=== PATIENT | male | born 1930 | race Caucasian/White ===

== ENCOUNTER 2018-04-28 00:45 | Inpatient (IN) ==
[2018-04-28] MEDS ORDERED: Morphine Sulfate Inj 2 MG/ML Vial IV.PUSH ONE (01:33)
[2018-04-28] MEDS ORDERED: Sod Chloride 0.9% Inj 1,000 ML IV.CONT SCH (01:45)
[2018-04-28 02:11] LABS: Baso # (Auto) 0.1 th/mm3 (0.0-0.2); Baso % (Auto) 1.1 % (0.0-2.0); Eos # (Auto) 0.2 th/mm3 (0.0-0.4); Eos % (Auto) 3.1 % (0.0-4.0); Hemoglobin 9.2 gm/dL (13.0-17.0); Lymph # (Auto) 0.9 th/mm3 (1.0-4.8); Lymph % (Auto) 17.3 % (9.0-44.0); Mean Corpuscular HGB Conc 32.9 % (32.0-36.0); Mean Corpuscular Hemoglobin 32.3 pg (27.0-34.0); Mean Corpuscular Volume 98.3 fL (80.0-100.0); Mean Platelet Volume 8.4 fL (7.0-11.0); Mono # (Auto) 0.9 th/mm3 (0.0-0.9); Mono % (Auto) 16.3 % (0.0-8.0); Neut # (Auto) 3.3 th/mm3 (1.8-7.7); Neut % (Auto) 62.2 % (16.0-70.0); Platelet Count 104 th/mm3 (150-450); Red Blood Count 2.85 mil/mm3 (4.50-5.90); Red Cell Distribution Width 17.4 % (11.6-17.2); White Blood Count 5.3 th/mm3 (4.0-11.0)
[2018-04-28 02:22] LABS: Activated Partial Thrombo Time 38.7 sec (24.3-30.1); INR 3.8 Ratio; Prothrombin Time 37.9 sec (9.8-11.6)
--- NOTE | 2018-04-28 02:31 | ED ---
HPI General Chief complaint: Fall Stated complaint: fall Time Seen by Provider: 04/28/18 01:01 Source: patient and family Limitations: no limitations History of Present Illness HPI narrative: The patient is an 87 year old male who presents to the [facility] emergency department with a history of falling prior to arrival. The patient reports that he was bending over to put lotion on his leg when he lost his balance and hit the top of his head and then the right arm. The patient reports having a headache. The patient reports having right shoulder pain and right elbow pain. The patient denies having any chest pain, chest pressure, or shortness of breath. He denies having any vomiting since a head injury. He denies having any neck pain, numbness or tingling to his extremities, or weakness of his extremities. The patient reports that he is anticoagulated on Coumadin due to a history of atrial fibrillation. On review of systems otherwise, the patient denies having any known recent fevers, cough, congestion , abdominal pain, diarrhea, urinary symptoms, or other neurologic symptoms. Related Data Home Medications Medication Instructions Recorded Confirmed Multiple Vitamins 1 tab PO BID 04/09/18 04/28/18 ascorbic acid (vitamin C) [Vitamin 500 mg PO DAILY 04/09/18 04/28/18 C] fluticasone 2 spray INHALATION DAILY 04/09/18 04/28/18 iron 65 mg PO BID 04/09/18 04/28/18 metoprolol tartrate 25 mg PO BID 04/09/18 04/28/18 nitroglycerin [Nitrostat] 0.4 mg SUBLINGUAL Q5-15M PRN 04/09/18 04/28/18 ranitidine HCl 150 mg PO DAILY 04/09/18 04/28/18 torsemide 20 mg PO DAILY 04/09/18 04/28/18 warfarin 2.5 mg PO 4XW 04/09/18 04/28/18 warfarin 5 mg PO 3XW 04/09/18 04/28/18 zolpidem 10 mg PO HS 04/09/18 04/28/18 acetaminophen-codeine 1 tab PO DAILY 04/12/18 04/28/18 [Tylenol-Codeine #3] Allergies Allergy/AdvReac Type Severity Reaction Status Date / Time MRI PRECAUTION AdvReac Severe NON REVO Uncoded 04/09/18 12:46 PACEMAKER. 08/30/14 LRS Review of Systems ROS: all other systems reviewed are negative [facility] Medical History Medical History A-fib (Acute) Colon cancer (Acute) Hypertension (Acute) Prostate cancer (Acute) Surgical History Surgical History H/O right inguinal hernia repair (Acute) History of cholecystectomy (Acute) Hx of CABG (Acute) Family History Family History Other Family history non-contributory Social History Social History Substance History: No History of Abuse Second Hand Smoke Exposure: No Smoking Status: Former smoker Tobacco Type: Cigarettes How Often Do You Have a Drink Containing Alcohol: Never Recent Travel in [facility] within the Last 8 Weeks: No Recent Out of Country Travel within the Last 8 Weeks: No Immunization History Tetanus Immunization: Unsure Exam Narrative Exam Narrative: General: The patient is a well-developed well-nourished male, uncomfortable appearing, reportedly related to right shoulder pain. Head and Neck exam: Head is normocephalic atraumatic. No facial bone tenderness or increased facial bone mobility noted on palpation. Eyes: EOMI, pupils are equal round and reactive to light. Nose: Midline septum with pink mucous membranes Mouth: Dentition unremarkable. Moist mucus membranes. Posterior oropharynx is not erythematous. No tonsillar hypertrophy. Uvula midline. Airway patent. Neck: The patient denies having any spinous process tenderness to palpation. No step-off or crepitus, no erythema or ecchymosis. No cervical paraspinal muscle tenderness on palpation. The patient has no pain with active range of motion of his neck in all directions. No tracheal deviation. The trachea appears midline. Cardiovascular: Regular rate and rhythm without murmurs, gallops, or rubs. Lungs: Clear to auscultation bilaterally. No wheezes, rhonchi, or rales. No chest wall tenderness to palpation. No erythema or ecchymosis noted. No crepitus , step off, or flail segment noted. Abdomen: Soft, with reported tenderness on palpation along bilateral upper quadrants of the abdomen. The patient does appear to have an area of ecchymosis developing along the left side of the lower pelvis. No guarding, rebound, or rigidity. No erythema. Extremities: No instability or pain noted on pelvic rock. No clubbing, cyanosis , or edema. 2+ pulses in all 4 extremities. No extremity tenderness or deformity noted on palpation or passive/ active range of motion, except in the area of interest, the right shoulder, the patient has swelling and a small area of ecchymosis developing. The patient has decreased range of motion. No loss of fullness in the glenoid fossa. The patient has full range of motion with extension and flexion at the elbow, extension and flexion at the wrist and hand. The patient has intact sensation over all fingertips, less than 3-second capillary refill. Back: No spinous process tenderness to palpation. No stepoff or crepitus noted. No costovertebral angle tenderness to palpation. No erythema or ecchymosis. Neurologic Exam: Cranial nerves 2-12 were intact on exam. Strength is 5/5 in all 4 extremities. No sensory deficits noted. Skin Exam: No rash noted. Intact skin that is warm and dry. Course Reevaluation(s) Reevaluation #1: The patient had a recurrence of pain and was given 4 mg of morphine IV. The patient had a right shoulder x-ray done that revealed a proximal humerus fracture. The patient was placed in a sling and swath. Reevaluation #2: The patient again had recurrence of pain and was treated with IV morphine. Consultations Consultation #1: The patient's case including history, pertinent physical examination findings, and laboratory studies were discussed with Dr. Zamora. It was agreed that the patient would be admitted to the trauma service. Initial Documented Vital Signs Temperature 98.5 F 04/28/18 00:59 Pulse Rate 72 04/28/18 00:59 Respiratory Rate 16 04/28/18 00:59 Blood Pressure 118/67 10 00:59 Pulse Oximetry 97 04/28/18 00:59 Last Documented Vital Signs Temperature 98.0 F 04/28/18 08:00 Pulse Rate 70 04/28/18 08:00 Respiratory Rate 14 04/28/18 08:00 Blood Pressure 94/44 L 04/28/18 08:00 Pulse Oximetry 92 L 04/28/18 08:00 Critical Care Time Critical Care Time: Yes Total Critical Care Time: 37 Attestation: Aggregate critical care time was 37 minutes. Time to perform other separately billable procedures was not included in the critical care time. My time did not include minutes spent treating any other patients simultaneously or on activities that did not directly contribute to the patient's treatment. The services I provided to this patient were to treat and/or prevent clinically significant deterioration that could result in: Respiratory failure, versus cardiovascular collapse from hemorrhagic shock, versus fluid overload from resuscitation. I provided critical care services requiring my management, as noted below: Chart data review, documentation time, medication orders and management, vital sign assessments/reviewing monitor data, ordering and reviewing lab tests, ordering and interpreting/reviewing x-rays and diagnostic studies, care of the patient and discussion of the patient with the admitting physicians. Medical Decision Making MDM Narrative Medical decision making narrative: During the course of the patient's emergency department visit, the patient's history, examination, and differential diagnosis were reviewed with the patient. The patient was placed on a stripping and booking machine operator with oximetry and frequent blood pressure monitoring. The patient had IV access obtained and blood work sent for analysis. A diagnostic evaluation was started regarding the patient's fall. The patient was initially provided normal saline IV fluids, morphine for pain, Zofran for nausea. The patient's diagnostic studies are remarkable for a normal white count of 5.3 , hemoglobin 9.2 with no prior hemoglobin for comparison of record in our electronic medical record, platelets are 104, monocytes 16.3.PT is 27.37.9, PTT 38.7, INR 3.8. The patient has no prior hemoglobin on CBC per record, however the patient did have an ABG on April 23 which revealed a hemoglobin at that time of 9.4, therefore the patient's level of anemia appears to be stable. Chemistry is remarkable for a BUN of 39, creatinine 2.93, GFR of 20, therefore CT scans were changed to without contrast to avoid further kidney injury, calcium 8.4, magnesium 2.7, total bilirubin 1.1, lipase within normal limits, BNP was 1290, supplemental IV fluids were therefore discontinued. A chest x- ray showed no acute abnormality. An elbow x-ray showed no acute abnormality. Shoulder x-ray revealed an oblique displaced fracture of the proximal right humerus through the surgical neck. CT scan of the brain showed no acute abnormality, CT scan of the C-spine showed no acute cervical spine abnormality, anterolisthesis of C7 on T1 which may be related to facet arthrosis, right pleural effusion, 12 mm right thyroid nodule. A chest CT revealed a mildly comminuted and displaced proximal right humerus fracture through the surgical neck, suspected nondisplaced right lateral third rib fracture, no pneumothorax is present, moderate sized simple appearing right pleural effusion and trace left pleural effusion which could be related to fluid overload, small volume of free fluid present within the upper abdomen, enlarged right heart and dilated IVC suggesting elevated right heart pressures. Severe coronary artery calcifications. CT scan of the abdomen and pelvis showed no acute findings other than a small volume of nonspecific free fluid in the perihepatic and perisplenic location The patient's case was discussed with the trauma surgeon on-call, Dr. Zamora who did agree to admit the patient to the trauma service for continued close observation due to his elevated INR, fall right rib fracture, right proximal humerus fracture for pain control. The patient's results were discussed with the patient, including the plan of care. I explained that further testing and/ or monitoring is indicated based on the patient's history, examination, and/ or laboratory findings. Therefore, I recommended admission for additional evaluation. The patient expressed understanding and was agreeable with this plan. The patient was admitted to the hospital in guarded condition and sent to a bed under the care of the trauma service. Medical Screen Exam Complete: Yes Emergency Medical Condition: Yes Differential Diagnosis Differential Diagnosis: Intracranial trauma, versus cervical spine trauma, versus intra-abdominal trauma, versus intrathoracic trauma, versus right shoulder fracture, versus right shoulder dislocation, versus right elbow fracture, versus right elbow dislocation. Medical Records Medical records reviewed: Yes I reviewed the patient's medical records. Lab Data Lab results reviewed: Yes I reviewed the patient's lab results. Result diagrams: 04/28/18 01:31 04/28/18 01:31 Lab Results 04/28/18 04/28/18 04/28/18 Range/Units 01:31 01:31 01:31 WBC 5.3 (4.0-11.0) th/mm3 RBC 2.85 L (4.50-5.90) mil/mm3 Hgb 9.2 L (13.0-17.0) gm/dL Hct 28.0 L (39.0-51.0) % MCV 98.3 (80.0-100.0) fL MCH 32.3 (27.0-34.0) pg MCHC 32.9 (32.0-36.0) % RDW 17.4 H (11.6-17.2) % Plt Count 104 L (150-450) th/mm3 MPV 8.4 (7.0-11.0) fL Neut % (Auto) 62.2 (16.0-70.0) % Lymph % (Auto) 17.3 (9.0-44.0) % Woodruff % (Auto) 16.3 H (0.0-8.0) % Eos % (Auto) 3.1 (0.0-4.0) % Baso % (Auto) 1.1 (0.0-2.0) % Neut # (Auto) 3.3 (1.8-7.7) th/mm3 Lymph # (Auto) 0.9 L (1.0-4.8) th/mm3 Woodruff # (Auto) 0.9 (0.0-0.9) th/mm3 Eos # (Auto) 0.2 (0.0-0.4) th/mm3 Baso # (Auto) 0.1 (0.0-0.2) th/mm3 WBC Differential . Differential Comment Auto diff final PT (9.8-11.6) sec INR Ratio APTT (24.3-30.1) sec Sodium 140 (136-145) meq/L Potassium 4.0 (3.5-5.1) meq/L Chloride 102 (98-107) meq/L Carbon Dioxide 25.2 (21.0-32.0) meq/L Anion Gap 13 (5-15) meq/L BUN 39 H (7-18) mg/dL Creatinine 2.93 H (0.60-1.30) mg/dL Estimated GFR 20 L (>89) mL/min Random Glucose 112 H (74-106) mg/dL Calcium 8.4 L (8.5-10.1) mg/dL Magnesium 2.7 H (1.5-2.5) mg/dL Total Bilirubin 1.1 H (0.2-1.0) mg/dL AST 33 (15-37) U/L ALT 17 (12-78) U/L Alkaline Phosphatase 93 (45-117) U/L Total Creatine Kinase 68 (39-308) U/L Troponin I 0.02 (0.02-0.05) ng/mL B-Natriuretic Peptide 1290 H (0-100) pg/mL Total Protein 6.7 (6.4-8.2) g/dL Albumin 3.6 (3.4-5.0) g/dL Lipase 151 (73-393) U/L Urine Color (Yellw/Straw) Urine Clarity (Clear) Urine pH (5.0-8.5) Ur Specific [place] (1.002-1.035) Urine Protein (Neg-Trace) mg/dL Urine Glucose (UA) (Negative) mg/dL Urine Ketones (Negative) mg/dL Urine Occult Blood (Negative) Urine Nitrate (Negative) Urine Bilirubin (Negative) Urine Urobilinogen (Less than 2) mg/dL Ur Leukocyte Esterase (Negative) Urine RBC (0-3) /hpf Urine WBC (0-5) /hpf Hyaline Casts (0-3) /lpf Urine Mucus (Occasional) /lpf Micro UA Comment Ur Microscopic Review Urine Culture Comments 04/28/18 04/28/18 Range/Units 01:31 04:10 WBC (4.0-11.0) th/mm3 RBC (4.50-5.90) mil/mm3 Hgb (13.0-17.0) gm/dL Hct (39.0-51.0) % MCV (80.0-100.0) fL MCH (27.0-34.0) pg MCHC (32.0-36.0) % RDW (11.6-17.2) % Plt Count (150-450) th/mm3 MPV (7.0-11.0) fL Neut % (Auto) (16.0-70.0) % Lymph % (Auto) (9.0-44.0) % Woodruff % (Auto) (0.0-8.0) % Eos % (Auto) (0.0-4.0) % Baso % (Auto) (0.0-2.0) % Neut # (Auto) (1.8-7.7) th/mm3 Lymph # (Auto) (1.0-4.8) th/mm3 Woodruff # (Auto) (0.0-0.9) th/mm3 Eos # (Auto) (0.0-0.4) th/mm3 Baso # (Auto) (0.0-0.2) th/mm3 WBC Differential Differential Comment PT 37.9 H D (9.8-11.6) sec INR 3.8 Ratio APTT 38.7 H (24.3-30.1) sec Sodium (136-145) meq/L Potassium (3.5-5.1) meq/L Chloride (98-107) meq/L Carbon Dioxide (21.0-32.0) meq/L Anion Gap (5-15) meq/L BUN (7-18) mg/dL Creatinine (0.60-1.30) mg/dL Estimated GFR (>89) mL/min Random Glucose (74-106) mg/dL Calcium (8.5-10.1) mg/dL Magnesium (1.5-2.5) mg/dL Total Bilirubin (0.2-1.0) mg/dL AST (15-37) U/L ALT (12-78) U/L Alkaline Phosphatase (45-117) U/L Total Creatine Kinase (39-308) U/L Troponin I (0.02-0.05) ng/mL B-Natriuretic Peptide (0-100) pg/mL Total Protein (6.4-8.2) g/dL Albumin (3.4-5.0) g/dL Lipase (73-393) U/L Urine Color Yellow (Yellw/Straw) Urine Clarity Hazy H (Clear) Urine pH 5.0 (5.0-8.5) Ur Specific [place] 1.010 (1.002-1.035) Urine Protein Negative (Neg-Trace) mg/dL Urine Glucose (UA) Negative (Negative) mg/dL Urine Ketones Negative (Negative) mg/dL Urine Occult Blood Negative (Negative) Urine Nitrate Negative (Negative) Urine Bilirubin Negative (Negative) Urine Urobilinogen Less than 2 (Less than 2) mg/dL Ur Leukocyte Esterase Negative (Negative) Urine RBC Less than 1 (0-3) /hpf Urine WBC 1 (0-5) /hpf Hyaline Casts 25 (0-3) /lpf Urine Mucus Few H (Occasional) /lpf Micro UA Comment Culture not ind Ur Microscopic Review Not Reportable Urine Culture Comments Culture not ind Imaging Data Radiologist's impression: Abdomen/Pelvis CT 04/28/18 01:24 CONCLUSION: 1. No acute finding is identified within the abdomen or pelvis on this noncontrast examination. 2. There is a small volume of nonspecific free fluid in the perihepatic and perisplenic location. 3. Severe atherosclerotic disease. Cervical Spine CT 04/28/18 01:24 CONCLUSION: 1. No acute cervical spine abnormality is identified. There is anterolisthesis of C7 on T1 which may be related to the facet arthrosis. 2. Right pleural effusion. 3. 12 mm right thyroid nodule. Head CT 04/28/18 01:24 CONCLUSION: No acute abnormality is identified. . Chest X-Ray 04/28/18 01:26 CONCLUSION: 1. Small right pleural effusion with atelectasis at the right lung base. The pleural effusion has slightly increased from the prior examination. 2. Right proximal humerus fracture. Elbow X-Ray 04/28/18 01:28 CONCLUSION: No fracture is identified. Shoulder X-Ray 04/28/18 01:28 CONCLUSION: There is an oblique displaced fracture of the proximal right humerus through the surgical neck. Chest CT 04/28/18 03:04 CONCLUSION: 1. There is a mildly comminuted and displaced proximal right humerus fracture through the surgical neck region. 2. Suspected nondisplaced right lateral third rib fracture. No pneumothorax is present. 3. Moderate size simple appearing right pleural effusion and trace left pleural fluid. 4. Small volume of free fluid is present within the upper abdomen. 5. Enlarged right heart and dilated IVC suggesting elevated right heart pressures. There is severe coronary artery calcification. Discharge Plan Discharge Disposition Patient Disposition: 30 Still Patient Discharge Details Diagnosis: Fall, Right rib fracture, Elevated INR, Fracture of proximal end of humerus Physicians Team ED Provider: Misti Yarbrough Primary Care Provider: Braden Johnson Attending Provider: Dario Zamora Other Providers: Thomas Ly ; Odalis Rosenberg ; Thania Caruso ; Donald Bob ; Singh Wu ; Stevie Jones ; Dario Zamora ; Hay Philip ; Lei Antony ; [employer] ; Danny Escudero ; Pat Russell Discharge Interventions Interventions: ED Discharge Assessment Last Done: 04/28/18 05:55 Status ED Status: Left Department Discharge Information Discharge Date/Time: 04/28/18 05:56
[2018-04-28 02:33] LABS: Alanine Aminotransferase 17 U/L (12-78); Albumin 3.6 g/dL (3.4-5.0); Anion Gap 13 meq/L (5-15); Aspartate Aminotransferase 33 U/L (15-37); Blood Urea Nitrogen 39 mg/dL (7-18); Calcium 8.4 mg/dL (8.5-10.1); Carbon Dioxide 25.2 meq/L (21.0-32.0); Chloride 102 meq/L (98-107); Glomerular Filtration Rate 20 mL/min (>89); Glucose,Random 112 mg/dL (74-106); Lipase 151 U/L (73-393); Magnesium 2.7 mg/dL (1.5-2.5); Sodium 140 meq/L (136-145)
[2018-04-28 02:38] LABS: Alkaline Phosphatase 93 U/L (45-117); Total Protein 6.7 g/dL (6.4-8.2); Troponin I 0.02 ng/mL (0.02-0.05)
[2018-04-28 02:42] LABS: Creatine Kinase 68 U/L (39-308)
--- NOTE | 2018-04-28 02:52 | XR ---
EXAM DATE: 04/28/2018 1:28 AM EDT AGE/SEX: 87 years / Male INDICATIONS: Right shoulder pain after falling today. CLINICAL DATA: This is the patient's initial encounter. Patient reports that signs and symptoms have been present for 1 day and indicates a pain score of 10/10. MEDICAL/SURGICAL HISTORY: Hypertension. CABG. Pacemaker. COMPARISON: No prior exams available for comparison. FINDINGS: 3 views of the right shoulder demonstrate an oblique displaced fracture through the proximal surgical neck of the humerus. Distal fragment is displaced by approximately 7 mm. There is no glenohumeral martin int dislocation. The acromioclavicular joint appears intact with osteoarthritis change. No acute soft tissue abnormality is identified. Visualized right chest demonstrates no acute abnormality. Median s ternotomy wires are present and cardiac pacing wires are seen. CONCLUSION: There is an oblique displaced fracture of the proximal right humerus through the surgical neck. Electronically signed by: Lon Morrison MD 04/28/2018 2:51 AM EDT
--- NOTE | 2018-04-28 02:54 | XR ---
EXAM DATE: 04/28/2018 1:26 AM EDT AGE/SEX: 87 years / Male INDICATIONS: Syncope. CLINICAL DATA: This is the patient's initial encounter. Patient reports that signs and symptoms have been present for 1 day and indicates a pain score of 0/10. MEDICAL/SURGICAL HISTORY: Hypertension. CABG. Pacemaker. COMPARISON: POI, XR CHEST PA AND LAT, 12/13/2017. . FINDINGS: 2 frontal views of the chest demonstrate stable enlargement of the cardiac silhouette in this patient post median sternotomy and CABG. Left chest wall cardiac pacing device is present. There is a small right pleural-based opacity with a linear opacity at the right lung base. No pneumothorax is identifi ed. No rib fracture is identified. There is a fracture of the proximal right humerus. CONCLUSION: 1. Small right pleural effusion with atelectasis at the right lung base. The pleural effusion has sl ightly increased from the prior examination. 2. Right proximal humerus fracture. Electronically signed by: Lon Morrison MD 04/28/2018 2:53 AM EDT
--- NOTE | 2018-04-28 02:57 | XR ---
EXAM DATE: 04/28/2018 1:28 AM EDT AGE/SEX: 87 years / Male INDICATIONS: Right elbow pain after falling today. CLINICAL DATA: This is the patient's initial encounter. Patient reports that signs and symptoms have been present for 1 day and indicates a pain score of 10/10. MEDICAL/SURGICAL HISTORY: Hypertension. CABG. Pacemaker. COMPARISON: No prior exams available for comparison. FINDINGS: 9 views of the right elbow demonstrate no fracture or dislocation. No definite joint effusion is iden tified. No soft tissue abnormality or radiopaque foreign body is identified. There is arterial vascul ar calcification. CONCLUSION: No fracture is identified. Electronically signed by: Lon Morrison MD 04/28/2018 2:56 AM EDT
[2018-04-28] MEDS ORDERED: Morphine Inj 4 MG/ML Vial IV.PUSH ONE ×2 (03:08→03:54)
--- NOTE | 2018-04-28 03:14 | CT ---
EXAM DATE: 04/28/2018 1:51 AM EDT AGE/SEX: 87 years / Male INDICATIONS: Trauma. Fall. CLINICAL DATA: This is the patient's initial encounter. Patient reports that signs and symptoms have been present for 1 day and indicates a pain score of 5/10. MEDICAL/SURGICAL HISTORY: Cardiovascular disease. Hypertension. Carcinoma, prostatic. Colon canc er CABG. CABG. RADIATION DOSE: 56.35 CTDI (mGy) COMPARISON: No prior exams available for comparison. TECHNIQUE: CT of the head without contrast. Using automated exposure control and adjustment of the mA and/or kV according to patient size, radiation dose was kept as low as reasonably achievable to ob tain optimal diagnostic quality images. DICOM format image data is available electronically for revi ew and comparison. FINDINGS: Cerebrum: There is mild generalized atrophy and ventricles are normal given the degree of atrophy. M ild periventricular white matter change is present. No midline shift, mass lesion, hemorrhage or acu te infarction. No extraaxial fluid collections are seen. Posterior Fossa: The cerebellum and brainstem demonstrate no acute abnormality. The 4th ventricle is midline. The cerebellopontine angle is within normal limits. Extracranial: The visualized sinuses are clear. Skull: The calvaria is intact. No skull fracture. CONCLUSION: No acute abnormality is identified. . Electronically signed by: Lon Morrison MD 04/28/2018 3:13 AM EDT
--- NOTE | 2018-04-28 03:26 | CT ---
EXAM DATE: 04/28/2018 3:06 AM EDT AGE/SEX: 87 years / Male INDICATIONS: Trauma. Fall. CLINICAL DATA: This is the patient's initial encounter. Patient reports that signs and symptoms have been present for 1 day and indicates a pain score of 5/10. MEDICAL/SURGICAL HISTORY: Cardiovascular disease. Hypertension. Carcinoma, prostatic. Colon canc er CABG. Pacemaker. RADIATION DOSE: 6.69 CTDI (mGy) ; Combined studies COMPARISON: No prior exams available for comparison. TECHNIQUE: Multiple contiguous axial images were obtained through the chest without contrast. Image s were obtained in suspended respiration using multiple row detector helical technique. Using automa angelo exposure control and adjustment of the mA and/or kV according to patient size, radiation dose was kept as low as reasonably achievable to obtain optimal diagnostic quality images. DICOM format imag e data is available electronically for review and comparison. FINDINGS: Lungs: No consolidation or pneumothorax. There is compressive atelectasis in the right lower lobe a djacent to the pleural effusion. Mild left lower lobe atelectasis is also present. Mediastinum: No acute abnormality is seen on this noncontrast examination but there is severe nguyen ry artery calcification and there is atherosclerotic disease of the aorta. Left chest wall cardiac pa cing device is present with lead tips in the right heart. The right heart is enlarged and IVC is dila angelo. No lymphadenopathy is identified. Pleurae: There is a moderate size right pleural effusion that appears simple. Trace left pleural flu id is present. Axillae: No lymphadenopathy. Musculoskeletal: There are degenerative changes throughout the thoracic spine. Median sternotomy wir es are present. The right proximal humerus fracture is identified consistent with a mildly comminuted displaced fracture at the proximal surgical neck. There is a questionable nondisplaced right lateral third rib fracture. Other: There is trace perihepatic and perisplenic free fluid. Calcifications are present within the right thyroid gland. CONCLUSION: 1. There is a mildly comminuted and displaced proximal right humerus fracture through the surgical n jeremiah region. 2. Suspected nondisplaced right lateral third rib fracture. No pneumothorax is present. 3. Moderate size simple appearing right pleural effusion and trace left pleural fluid. 4. Small volume of free fluid is present within the upper abdomen. 5. Enlarged right heart and dilated IVC suggesting elevated right heart pressures. There is severe c oronary artery calcification. Electronically signed by: Lon Morrison MD 04/28/2018 3:25 AM EDT
--- NOTE | 2018-04-28 03:32 | CT ---
EXAM DATE: 04/28/2018 1:24 AM EDT AGE/SEX: 87 years / Male INDICATIONS: Trauma. Fall. CLINICAL DATA: This is the patient's initial encounter. Patient reports that signs and symptoms have been present for 1 day and indicates a pain score of 5/10. MEDICAL/SURGICAL HISTORY: Cardiovascular disease. Hypertension. Carcinoma, prostatic. Colon cancer CABG. Pacemaker. RADIATION DOSE: 6.69 CTDI (mGy) ; Combined studies COMPARISON: [facility] [place] W/O CONTRAST, 09/22/2014. . TECHNIQUE: Multiple contiguous axial images were obtained through the abdomen. Images were obtained using multiple row detector helical technique. Using automated exposure control and adjustment of the mA and/or kV according to patient size, radiation dose was kept as low as reasonably achievable to o btain optimal diagnostic quality images. DICOM format image data is available electronically for rev iew and comparison. FINDINGS: Lower chest: Please refer to chest CT report for description of the supradiaphragmatic findings. Hepatobiliary: No focal liver lesion is seen on this noncontrast examination. The intrahepatic IVC is dilated. Gallbladder is not visualized. No bile duct dilatation is present. Kidneys: No hydronephrosis, stone, or mass. Adrenal Glands: Within normal limits. Spleen: No abnormality is appreciated on this noncontrast examination. There is perihepatic free flui d. Pancreas: No acute abnormality is identified on this noncontrast examination. Vascular: The aorta is nonaneurysmal. There is severe atherosclerotic disease. Some type of the varix is present within the right pelvis and is stable. Bowel/Mesentery: Stomach and small bowel demonstrate no acute abnormality. There has been prior right hemicolectomy. Area of anastomosis demonstrates no acute abnormality. There is a small volume of per ihepatic and perisplenic free fluid. Abdominal Wall: No hernia is visualized. Retroperitoneum: No lymphadenopathy. Bladder: No wall thickening or mass. Reproductive: There are fiducial markers in the prostate gland related to prior radiation therapy. Inguinal: No lymphadenopathy or hernia. Musculoskeletal: No acute osseous abnormality is identified. There are degenerative changes of the sherine mbar spine but no fracture is identified. CONCLUSION: 1. No acute finding is identified within the abdomen or pelvis on this noncontrast examination. 2. There is a small volume of nonspecific free fluid in the perihepatic and perisplenic location. 3. Severe atherosclerotic disease. Electronically signed by: Lon Morrison MD 04/28/2018 3:31 AM EDT
--- NOTE | 2018-04-28 03:43 | CT ---
EXAM DATE: 04/28/2018 1:51 AM EDT AGE/SEX: 87 years / Male INDICATIONS: Trauma. Fall. CLINICAL DATA: This is the patient's initial encounter. Patient reports that signs and symptoms have been present for 1 day and indicates a pain score of 5/10. MEDICAL/SURGICAL HISTORY: Cardiovascular disease. Hypertension. Carcinoma, prostatic. Colon cancer CABG. Pacemaker. RADIATION DOSE: 29.54 CTDI (mGy) COMPARISON: No prior exams available for comparison. TECHNIQUE: Contiguous axial images were obtained using helical multirow detector technique. The vol umetric data was post-processed with multiplanar reconstruction in oblique axial, sagittal, and coron al planes. Using automated exposure control and adjustment of the mA and/or kV according to patient s ize, radiation dose was kept as low as reasonably achievable to obtain optimal diagnostic quality elisa ges. DICOM format image data is available electronically for review and comparison. FINDINGS: There is 4 mm of anterolisthesis of C7 on T1. Mild facet arthrosis is present bilaterally at this lev el. There is minimal anterolisthesis of C3 on C4 also with bilateral facet arthrosis. No fracture or dislocation is identified. There is degenerative disc disease at C3-C4 and extending through C7-T1. T here is facet arthrosis at multiple levels. No large acute appearing disc herniation is seen in the u pper cervical spine. Visualized surrounding structures demonstrate severe calcification of the carotid bulbs bilaterally, right pleural effusion is partially visualized. There is a hypodense right thyroid nodule measuring a pproximately 12 mm. CONCLUSION: 1. No acute cervical spine abnormality is identified. There is anterolisthesis of C7 on T1 which may be related to the facet arthrosis. 2. Right pleural effusion. 3. 12 mm right thyroid nodule. Electronically signed by: Lon Morrison MD 04/28/2018 3:41 AM EDT
[2018-04-28 04:23] LABS: Bilirubin,Urine Negative (Negative); Clarity,Urine Hazy (Clear); Color,Urine Yellow (Yellw/Straw); Glucose,Urine (UA) Negative (Negative); Hyaline Casts,Urine 25 /lpf (0-3); Leukocyte Esterase,Urine Negative (Negative); Mucus,Urine Few /lpf (Occasional); Nitrite,Urine Negative (Negative)
[2018-04-28] MEDS ORDERED: Nitroglycerin SL (Override) 0.4 MG Tab SL PRN (05:12)
[2018-04-28] MEDS ORDERED: HYDROmorphone PF Inj 1 MG/ML Ampul IV.PUSH PRN (06:00)
[2018-04-28] MEDS ORDERED: HYDROmorphone PF Inj 2 MG/ML Vial IV.PUSH PRN (07:00)
--- NOTE | 2018-04-28 07:36 | P.CONOP ---
[facility] Orthopedics Consult Note - [facility] Consult date: 04/28/18 Chief complaint: fall, right humerus fx, right rib fracture Narrative: Abdifatah is an 87-year-old male. He had a fall at home. He went to his bathroom to put lotion on his legs. He lost his balance and fell. He hit his head. He also landed on his right arm. He had immediate right arm and shoulder pain. He denies dizziness, syncope, or loss of consciousness. He describes a mechanical fall. His shoulder pain is worse with movement and is improved with rest. He is currently awake alert on the orthopedic floor. He denies having any chest pain, chest pressure, or shortness of breath. He denies having any vomiting since a head injury. He denies having any neck pain , numbness or tingling to his extremities, or weakness of his extremities. He is anticoagulated on Coumadin due to a history of atrial fibrillation. Review of Systems Patient denies fevers, chills, weight loss, headache, visual changes, hearing loss, chest pain, palpitations, shortness of breath, nausea, vomiting, no urinary changes, diarrhea, bowel changes, neck pain, back pain, skin rashes, weakness of extremities, easy bleeding, enlarged lymph nodes, numbness of extremities, anxiety, or depression. He complains of right arm and shoulder pain Patient's social history, past medical history, and family history were reviewed on chart and with patient. [facility] [place] - History History Provided By: Patient, Family Member - Medical History Medical History: Medical History (Last Reviewed 04/28/18 @ 07:33 by Danny Escudero MD) A-fib Colon cancer Hypertension Prostate cancer - Surgical History Surgical History: Surgical History (Last Reviewed 04/28/18 @ 07:33 by Danny Escudero MD) H/O right inguinal hernia repair History of cholecystectomy Hx of CABG - Family History Family History: Family History (Last Updated 04/28/18 @ 07:33 by Danny Escudero MD) Other Family history non-contributory - Social History I have reviewed the patient's Social History: Yes - Tobacco History Second Hand Smoke Exposure: No Tobacco Use In Past 30 Days: No Smoking Status: Former smoker Tobacco Type: Cigarettes - Alcohol History How Often Do You Have a Drink Containing Alcohol: Never - Substance Use History Substance History: No History of Abuse - Travel History Recent Travel in the [facility] Within the Last 8 Weeks: No Recent Travel Out of the Country Within the Last 8 Weeks: No - Immunization History Tetanus Immunization: Unsure Hx Influenza Vaccine This Season: No Medications and Allergies Active Medications: Active Medications Al Hydroxide/Mg Hydroxide (Milk Of Matias Suarez) 30 ml PO BID TONY Albuterol (Duoneb Neb (Prn)) 1 ampul NEB Q2HR NEB PRN PRN Reason: SHORTNESS OF BREATH/WHEEZING Ascorbic Acid (Vitamin C) 500 mg PO DAILY TONY Bacitracin (Baciguent Oint) 1 applicatio TOPICAL BID TONY Chlorhexidine Gluconate (Chlorhexidine 2% Cloth) 3 pack TOPICAL DAILY@0400 TONY Stop: 05/04/18 03:59 Chlorhexidine Gluconate (Chlorhexidine 2% Cloth) 3 pack TOPICAL DAILY@0400 PRN PRN Reason: Extra cloth needed Stop: 05/04/18 03:59 Docusate Sodium (Colace) 100 mg PO BID [facility] Enalaprilat (Vasotec Inj) 1.25 mg IV.PUSH Q8H PRN PRN Reason: Blood pressure 180/95 Famotidine (Pepcid) 20 mg PO DAILY [facility] Fluticasone Propionate (Flovent Hfa 110 Mcg Inh) 2 puff INH DAILY [facility] Hydromorphone HCl (Dilaudid Pf Inj) 1 mg IV.PUSH Q4H PRN PRN Reason: PAIN SCALE 6-10 Acetaminophen (Ofirmev Inj) 1,000 mg in 100 mls @ 400 mls/hr IV.SIG Q6H PRN PRN Reason: BREAKTHROUGH PAIN Sodium Chloride (Ns Inj) 1,000 mls @ 100 mls/hr IV.CONT .Q10H [facility] Lidocaine HCl (Lidoderm 5% Patch.12 Hr) 1 patch T-DERMAL DAILY [facility] Metoprolol Tartrate (Lopressor) 25 mg PO BID [facility] Nitroglycerin (Nitrostat Sl (Override)) 0.4 mg SL Q5M PRN PRN Reason: Chest Pain Ondansetron HCl (Zofran Inj) 4 mg IV.PUSH Q6H PRN PRN Reason: NAUSEA OR VOMITING Oxycodone HCl (Roxicodone) 5 mg PO Q4H PRN PRN Reason: Pain Scale > 3 Patch Removal (Remove Old Patch) 1 each T-DERMAL HS [facility] Sodium Chloride (Ns Flush) 2 ml IV.FLUSH UNSCH PRN PRN Reason: FLUSH AFTER USING IV ACCESS Sodium Chloride (Ns Flush) 2 ml IV.FLUSH UNSCH PRN PRN Reason: FLUSH AFTER USING IV ACCESS Torsemide (Demadex) 20 mg PO DAILY TONY Allergies Allergy/AdvReac Type Severity Reaction Status Date / Time MRI PRECAUTION AdvReac Severe NON REVO Uncoded 04/09/18 12:46 PACEMAKER. 08/30/14 LRS Home Medications Medication Instructions Recorded Confirmed Type Multiple Vitamins 1 tab PO BID 04/09/18 04/28/18 History ascorbic acid (vitamin C) [Vitamin 500 mg PO DAILY 04/09/18 04/28/18 History C] fluticasone 2 spray INHALATION DAILY 04/09/18 04/28/18 History iron 65 mg PO BID 04/09/18 04/28/18 History metoprolol tartrate 25 mg PO BID 04/09/18 04/28/18 History nitroglycerin [Nitrostat] 0.4 mg SUBLINGUAL Q5-15M PRN 04/09/18 04/28/18 History ranitidine HCl 150 mg PO DAILY 04/09/18 04/28/18 History torsemide 20 mg PO DAILY 04/09/18 04/28/18 History warfarin 2.5 mg PO 4XW 04/09/18 04/28/18 History warfarin 5 mg PO 3XW 04/09/18 04/28/18 History zolpidem 10 mg PO HS 04/09/18 04/28/18 History acetaminophen-codeine 1 tab PO DAILY 04/12/18 04/28/18 History [Tylenol-Codeine #3] Exam Vital signs: Vital Signs 04/28/18 00:59 04/28/18 03:27 04/28/18 05:30 Temperature 98.5 F Pulse Rate 72 77 Respiratory Rate 16 18 16 Blood Pressure 118/67 103/67 Pulse Oximetry 97 97 04/28/18 05:55 04/28/18 06:00 Temperature 98.2 F Pulse Rate 82 Respiratory Rate 16 Blood Pressure 120/77 Pulse Oximetry 18 L Intake & Output 04/27/18 04/28/18 04/28/18 18:59 06:59 18:59 Intake Total 310 / 310 Balance 310 / 310 Weight 80.8 kg Intake: IV 310 / 310 NS Inj 1,000 ML @ 70 mls/hr IV. 210 / 210 CONT .[id number] TONY Rx#:[id number] Ancef Inj 1,000 MG In NS Inj 100 / 100 100 ML @ 100 mls/hr IV.SIG ONCE ONE Rx#:[id number] Narrative: Enzo is an 87-year-old male. General: Awake and alert. No acute distress. Appears well-developed well- nourished Head: Normocephalic, pupils are equal Neck: Soft, nontender, trachea midline Abdomen: Soft, nondistended Examination of right arm reveals pain with shoulder motion. He is tender to palpation over the proximal humerus. He has no tenderness over the elbow, forearm, or wrist.. Skin is intact. Radial pulse is palpable. Normal capillary refill in fingers. Sensation is intact in radial, ulnar, and median nerve distributions. Customer Service Associate strength is +5. No lymphadenopathy noted. Examination of left arm reveals no pain or deformity with shoulder, elbow, or wrist motion. Skin is intact. Radial pulse is palpable. Normal capillary refill in fingers. Sensation is intact in radial, ulnar, and median nerve distributions. Customer Service Associate strength is +5. No lymphadenopathy noted. Examination of left lower extremity reveals no pain or deformity with hip, knee , or ankle motion. Skin is intact. Sensation is intact in left foot. Dorsalis pedis pulse is palpable. Normal capillary refill and feet. Thigh and calf compartments are soft. No lymphadenopathy noted. +5 strength of ankle dorsiflexion and plantarflexion. Examination of right lower extremity reveals no pain or deformity with hip, knee , or ankle motion. Skin is intact. Sensation is intact in right foot. Dorsalis pedis pulse is palpable. Normal capillary refill and feet. Thigh and calf compartments are soft. No lymphadenopathy noted. +5 strength of ankle dorsiflexion and plantarflexion. Results - Labs Result Diagrams: 04/28/18 01:31 04/28/18 01:31 Labs: Laboratory Results - last 24 hr 04/28/18 04/28/18 04/28/18 01:31 01:31 01:31 WBC 5.3 RBC 2.85 L Hgb 9.2 L Hct 28.0 L MCV 98.3 MCH 32.3 MCHC 32.9 RDW 17.4 H Plt Count 104 L MPV 8.4 Neut % (Auto) 62.2 Lymph % (Auto) 17.3 Mobile % (Auto) 16.3 H Eos % (Auto) 3.1 Baso % (Auto) 1.1 Neut # (Auto) 3.3 Lymph # (Auto) 0.9 L Mobile # (Auto) 0.9 Eos # (Auto) 0.2 Baso # (Auto) 0.1 WBC Differential . Differential Comment Auto diff final PT INR APTT Sodium 140 Potassium 4.0 Chloride 102 Carbon Dioxide 25.2 Anion Gap 13 BUN 39 H Creatinine 2.93 H Estimated GFR 20 L Random Glucose 112 H Calcium 8.4 L Magnesium 2.7 H Total Bilirubin 1.1 H AST 33 ALT 17 Alkaline Phosphatase 93 Total Creatine Kinase 68 Troponin I 0.02 B-Natriuretic Peptide 1290 H Total Protein 6.7 Albumin 3.6 Lipase 151 Urine Color Urine Clarity Urine pH Ur Specific [place] Urine Protein Urine Glucose (UA) Urine Ketones Urine Occult Blood Urine Nitrate Urine Bilirubin Urine Urobilinogen Ur Leukocyte Esterase Urine RBC Urine WBC Hyaline Casts Urine Mucus Micro UA Comment Ur Microscopic Review Urine Culture Comments 04/28/18 04/28/18 01:31 04:10 WBC RBC Hgb Hct MCV MCH MCHC RDW Plt Count MPV Neut % (Auto) Lymph % (Auto) Mobile % (Auto) Eos % (Auto) Baso % (Auto) Neut # (Auto) Lymph # (Auto) [place] # (Auto) Eos # (Auto) Baso # (Auto) WBC Differential Differential Comment PT 37.9 H D INR 3.8 APTT 38.7 H Sodium Potassium Chloride Carbon Dioxide Anion Gap BUN Creatinine Estimated GFR Random Glucose Calcium Magnesium Total Bilirubin AST ALT Alkaline Phosphatase Total Creatine Kinase Troponin I B-Natriuretic Peptide Total Protein Albumin Lipase Urine Color Yellow Urine Clarity Hazy H Urine pH 5.0 Ur Specific [place] 1.010 Urine Protein Negative Urine Glucose (UA) Negative Urine Ketones Negative Urine Occult Blood Negative Urine Nitrate Negative Urine Bilirubin Negative Urine Urobilinogen Less than 2 Ur Leukocyte Esterase Negative Urine RBC Less than 1 Urine WBC 1 Hyaline Casts 25 Urine Mucus Few H Micro UA Comment Culture not ind Ur Microscopic Review Not Reportable Urine Culture Comments Culture not ind - Diagnostic results Imaging: Impressions Abdomen/Pelvis CT 04/28/18 01:24 CONCLUSION: 1. No acute finding is identified within the abdomen or pelvis on this noncontrast examination. 2. There is a small volume of nonspecific free fluid in the perihepatic and perisplenic location. 3. Severe atherosclerotic disease. Cervical Spine CT 04/28/18 01:24 CONCLUSION: 1. No acute cervical spine abnormality is identified. There is anterolisthesis of C7 on T1 which may be related to the facet arthrosis. 2. Right pleural effusion. 3. 12 mm right thyroid nodule. Head CT 04/28/18 01:24 CONCLUSION: No acute abnormality is identified. . Chest X-Ray 04/28/18 01:26 CONCLUSION: 1. Small right pleural effusion with atelectasis at the right lung base. The pleural effusion has slightly increased from the prior examination. 2. Right proximal humerus fracture. Elbow X-Ray 04/28/18 01:28 CONCLUSION: No fracture is identified. Shoulder X-Ray 04/28/18:28 CONCLUSION: There is an oblique displaced fracture of the proximal right humerus through the surgical neck. Chest CT 04/28/18 03:04 CONCLUSION: 1. There is a mildly comminuted and displaced proximal right humerus fracture through the surgical neck region. 2. Suspected nondisplaced right lateral third rib fracture. No pneumothorax is present. 3. Moderate size simple appearing right pleural effusion and trace left pleural fluid. 4. Small volume of free fluid is present within the upper abdomen. 5. Enlarged right heart and dilated IVC suggesting elevated right heart pressures. There is severe coronary artery calcification. Shoulder x-ray: report reviewed, image reviewed Assessment and Plan - Assessment and Plan Enzo has a minimally displaced right proximal humerus fracture. Treatment options were discussed. I discussed surgical and nonsurgical options. At this point the fractures are relatively well aligned. Given his age and medical problems, I would recommend nonsurgical treatment. Patient is in agreement with this plan. All questions were answered. He will need to wear a sling and swath at all times. He should take calcium and vitamin D supplementation. He will need to follow-up in office in 1-2 weeks for repeat x-rays of right shoulder. Physical therapy will be consulted. A mid-level provider in my office (nurse practitioner or physician culture media laboratory assistant) may see this patient on follow-up visits and continue to implement the objectives of this plan including: Starting or adjusting medications, injections , cast application, orthotics, brace application, physical therapy, radiological studies (including x-ray, MRI, CT, ultrasound, bone scan), vascular studies, neurologic studies, specialist consultation, and proceeding with surgical management, as appropriate.
[2018-04-28] MEDS ORDERED: Docusate Sodium 100 MG Capsule PO SCH (09:00)
[2018-04-28] MEDS: Docusate Sodium 100 MG Capsule PO SCH ×2 (10:24→20:53)
[2018-04-28] MEDS: Torsemide 20 MG Tablet PO SCH (10:24)
[2018-04-28] MEDS: Sod Chloride 0.9% Inj 1,000 ML IV.CONT SCH ×2 (10:24→17:52)
[2018-04-28] MEDS: Metoprolol Tartrate 25 MG Tablet PO SCH ×2 (10:25→20:53)
[2018-04-28] MEDS: Famotidine 20 MG Tablet PO SCH (10:25)
[2018-04-28] MEDS: Ascorbic Acid 500 MG Tablet PO SCH (10:25)
--- NOTE | 2018-04-28 10:29 | MH ---
cc: Dario Zamora MD DATE OF ADMISSION: 04/28/2018 CHIEF COMPLAINT: Fall, right humerus fracture, rib fracture, consultation by Dr. Misti Yarbrough. HISTORY OF PRESENT ILLNESS: The patient is an 87-year-old male status post fall. The patient notes that he was bending over to put lotion on his legs when he lost his balance and fell, hitting his head and right arm. He came as a nontrauma alert to the emergency department for further evaluation and workup. The patient noted to have a proximal humerus fracture and right rib fractures. The patient is noted to have multiple medical issues, also on atrial fibrillation, on Coumadin and an INR of 3.2. He is hemodynamically stable. Primary and secondary surveys were done. He was noted to be awake, alert, a GCS of 15 and protecting his airway. PAST MEDICAL HISTORY: Atrial fibrillation, colon cancer, hypertension, prostate cancer. PAST SURGICAL HISTORY: Right inguinal hernia repair, cholecystectomy, history of CABG. SOCIAL HISTORY: Previous history of smoking, currently denies smoking, ETOH or IVDA. ALLERGIES: NO KNOWN DRUG ALLERGIES. MEDICATIONS: See EMR, Coumadin. FAMILY HISTORY: Denies diabetes or hypertension. REVIEW OF SYSTEMS: A 12-point review of systems done, otherwise negative except as above. PHYSICAL EXAMINATION: GENERAL: The patient in no acute distress. VITAL SIGNS: Temperature 98.5, pulse 72, respirations 16, blood pressure 118/67, saturation 97%. HEENT: Pupils are round, reactive, and chronic old bruising to the left side of face. NECK: Supple. Trachea midline. Clavicles nontender. LUNGS: Bilateral expansion. Tenderness to palpation in the right chest, well-healed midline surgical scar, pacer. HEART: S1, S2, irregularly irregular. ABDOMEN: Soft, nontender, nondistended. EXTREMITIES: 2+ pulses all extremities. Bruising upper extremities, right upper extremity in sling. Tenderness to palpation in proximal right upper extremity. NEUROLOGIC: Intact, moving the extremities. Cranial nerves II-XII intact, 5/5 motor all extremities. SKIN: Bruising, abrasions. No rash. LABORATORY AND DIAGNOSTIC DATA: WBC 5.3, hemoglobin 9.2, hematocrit 28, platelets 104. Sodium 140, potassium 4, chloride 102, BUN is 39, creatinine 2.9, AST 33, ALT 17, lipase 151. INR 3.8. CT is reviewed by myself showing a chest x-ray, small pleural effusion, atelectasis. Right shoulder proximal humerus fracture, surgical neck. Elbow x-ray, no evidence of fracture. CT chest, mild comminuted right humerus proximal fracture, right lateral third rib fracture, no pneumothorax, small effusion, coronary calcification. CT C-spine, degenerative disease C7-T1, 1.[address] abdomen and pelvis, no acute traumatic pathology, small volume free fluid. ASSESSMENT: The patient is an 87-year-old male status post fall, right proximal humerus fracture, right rib fracture x1, multiple medical issues, supratherapeutic INR of 3.8, acute kidney disease, creatinine elevation. PLAN: After full workup of the patient's above issues, at this point, discussed with the patient. The patient is on Coumadin and we will plan to hold this. INR is supratherapeutic. Will defer in consultation to [facility] medical management of multiple medical problems. The patient has a humerus fracture. Will discuss with orthopedics for intervention and evaluation. Rib fracture, discussed with the patient pain control, pulmonary toilet. Repeat chest x-ray, small effusion as above. No surgical treatment at this time. The patient has thyroid nodule. Recommend followup after acute traumatic events. Patient will be n.p.o. except p.o. medications. Await orthopedic recommendations. We will admit the patient to floor with telemetry monitoring. MD JOIE Mckeon/harinder , 07:06 AM , 07:17 AM [email or web address]
[2018-04-28] MEDS ORDERED: Influenza (Quadrivalent) Vaccine 0.5 ML Syringe IM ONE (11:00)
[2018-04-28] MEDS: Lidocaine 5% Patch T-DERMAL SCH (12:19)
--- NOTE | 2018-04-28 12:43 | P.CONIM ---
History of Present Illness Service: [facility] hospitalist Consult date: 04/28/18 Requesting Physician: Dario Zamora Reason for Consult: opinion recommendations on patient's history of atrial fibrillation Primary Care Provider: Braden Johnosn MD Chief Complaint: Right arm pain History of Present Illness: 87-year-old white male with a history of atrial fibrillation, hypertension who accidentally tripped and fell early this morning sustaining an injury over the right upper arm. He states that he did not lose consciousness or hit his head. He denies feeling dizzy prior to the fall. At this time, other than right arm pain he has no other concerns or complaints at this time. He denies any chest pain or palpitations. Review of Systems All other systems reviewed negative except as stated in HPI [facility] - History History Provided By: Patient, Family Member - Medical History Medical History: Medical History (Last Reviewed 04/28/18 @ 11:22 by Ike Mcclelland) A-fib Colon cancer Hypertension Prostate cancer - Surgical History Surgical History: Surgical History (Last Reviewed 04/28/18 @ 11:22 by Ike Mcclelland) H/O right inguinal hernia repair History of cholecystectomy Hx of CABG - Family History Family History: Family History (Last Updated 04/28/18 @ 12:37 by Pat Russell MD) Father Family history of acute myocardial infarction Mother Cancer - Social History I have reviewed the patient's Social History: Yes - Tobacco History Second Hand Smoke Exposure: No Tobacco Use In Past 30 Days: No Smoking Status: Former smoker Tobacco Type: Cigarettes - Alcohol History How Often Do You Have a Drink Containing Alcohol: Never - Substance Use History Substance History: No History of Abuse - Travel History Recent Travel in the [place] Within the Last 8 Weeks: No Recent Travel Out of the Country Within the Last 8 Weeks: No - Immunization History Tetanus Immunization: Unsure Hx Influenza Vaccine This Season: No Medications and Allergies Active Medications: Active Medications Al Hydroxide/Mg Hydroxide (Milk Of Matias Liramsey) 30 ml PO BID [facility] Last Admin: 04/28/18 10:25 Dose: Not Given Albuterol (Duoneb Neb (Prn)) 1 ampul NEB Q2HR NEB PRN PRN Reason: SHORTNESS OF BREATH/WHEEZING Ascorbic Acid (Vitamin C) 500 mg PO DAILY [facility] Last Admin: 04/28/18 10:25 Dose: Not Given Bacitracin (Baciguent Oint) 1 applicatio TOPICAL BID [facility] Last Admin: 04/28/18 12:20 Dose: 1 applicatio Chlorhexidine Gluconate (Chlorhexidine 2% Cloth) 3 pack TOPICAL DAILY@0400 [facility] Stop: 05/04/18 03:59 Chlorhexidine Gluconate (Chlorhexidine 2% Cloth) 3 pack TOPICAL DAILY@0400 PRN PRN Reason: Extra cloth needed Stop: 05/04/18 03:59 Docusate Sodium (Colace) 100 mg PO BID [facility] Last Admin: 04/28/18 10:24 Dose: Not Given Enalaprilat (Vasotec Inj) 1.25 mg IV.PUSH Q8H PRN PRN Reason: Blood pressure 180/95 Famotidine (Pepcid) 20 mg PO DAILY [facility] Last Admin: 04/28/18 10:25 Dose: Not Given Fluticasone Propionate (Flovent Hfa 110 Mcg Inh) 2 puff INH DAILY [facility] Last Admin: 04/28/18 10:25 Dose: Not Given Hydromorphone HCl (Dilaudid Pf Inj) 1 mg IV.PUSH Q4H PRN PRN Reason: PAIN SCALE 6-10 Last Admin: 04/28/18 12:20 Dose: 1 mg Acetaminophen (Ofirmev Inj) 1,000 mg in 100 mls @ 400 mls/hr IV.SIG Q6H PRN PRN Reason: BREAKTHROUGH PAIN Sodium Chloride (Ns Inj) 1,000 mls @ 100 mls/hr IV.CONT .Q10H [facility] Last Admin: 04/28/18 10:24 Dose: 100 mls/hr Lidocaine HCl (Lidoderm 5% Patch.12 Hr) 1 patch T-DERMAL DAILY [facility] Last Admin: 04/28/18 12:19 Dose: 1 patch Metoprolol Tartrate (Lopressor) 25 mg PO BID [facility] Last Admin: 04/28/18 10:25 Dose: Not Given Nitroglycerin (Nitrostat Sl (Override)) 0.4 mg SL Q5M PRN PRN Reason: Chest Pain Ondansetron HCl (Zofran Inj) 4 mg IV.PUSH Q6H PRN PRN Reason: NAUSEA OR VOMITING Oxycodone HCl (Roxicodone) 5 mg PO Q4H PRN PRN Reason: Pain Scale > 3 Patch Removal (Remove Old Patch) 1 each T-DERMAL HS [facility] Sodium Chloride (Ns Flush) 2 ml IV.FLUSH UNSCH PRN PRN Reason: FLUSH AFTER USING IV ACCESS Sodium Chloride (Ns Flush) 2 ml IV.FLUSH UNSCH PRN PRN Reason: FLUSH AFTER USING IV ACCESS Torsemide (Demadex) 20 mg PO DAILY [facility] Last Admin: 04/28/18 10:24 Dose: Not Given Allergies Allergy/AdvReac Type Severity Reaction Status Date / Time MRI PRECAUTION AdvReac Severe NON REVO Uncoded 04/09/18 12:46 PACEMAKER. 08/30/14 LRS Home Medications Medication Instructions Recorded Confirmed Type Multiple Vitamins 1 tab PO BID 04/09/18 04/28/18 History ascorbic acid (vitamin C) [Vitamin 500 mg PO DAILY 04/09/18 04/28/18 History C] fluticasone 2 spray INHALATION DAILY 04/09/18 04/28/18 History iron 65 mg PO BID 04/09/18 04/28/18 History metoprolol tartrate 25 mg PO BID 04/09/18 04/28/18 History nitroglycerin [Nitrostat] 0.4 mg SUBLINGUAL Q5-15M PRN 04/09/18 04/28/18 History ranitidine HCl 150 mg PO DAILY 04/09/18 04/28/18 History torsemide 20 mg PO DAILY 04/09/18 04/28/18 History warfarin 2.5 mg PO 4XW 04/09/18 04/28/18 History warfarin 5 mg PO 3XW 04/09/18 04/28/18 History zolpidem 10 mg PO HS 04/09/18 04/28/18 History acetaminophen-codeine 1 tab PO DAILY 04/12/18 04/28/18 History [Tylenol-Codeine #3] Exam Vital signs: Vital Signs 04/28/18 00:59 04/28/18 03:27 04/28/18 05:30 Temperature 98.5 F Pulse Rate 72 77 Respiratory Rate 16 18 16 Blood Pressure 118/67 103/67 Pulse Oximetry 97 97 04/28/18 05:55 04/28/18 06:00 04/28/18 08:00 Temperature 98.2 F 98.0 F Pulse Rate 82 79 Respiratory Rate 16 15 Blood Pressure 120/77 94/44 L Pulse Oximetry 18 L 92 L 04/28/18 09:00 Temperature Pulse Rate 79 Respiratory Rate Blood Pressure Pulse Oximetry Intake & Output 04/27/18 04/28/18 04/28/18 18:59 06:59 18:59 Intake Total 310 / 310 Balance 310 / 310 Weight 80.8 kg Intake: IV 310 / 310 NS Inj 1,000 ML @ 70 mls/hr IV. 210 / 210 CONT .[id number] TONY Rx#:[id number] Ancef Inj 1,000 MG In NS Inj 100 / 100 100 ML @ 100 mls/hr IV.SIG ONCE ONE Rx#:[id number] Narrative: GENERAL: Well-nourished well-developed white male no acute distress sleepy HEAD: Atraumatic. Normocephalic. EYES: Pupils equal and round. No scleral icterus. No injection or drainage. ENT: No nasal bleeding or discharge. Mucous membranes pink and moist. NECK: Trachea midline. No JVD. CARDIOVASCULAR: Regular rate and rhythm. RESPIRATORY: No accessory muscle use. Clear to auscultation. Breath sounds equal bilaterally. GASTROINTESTINAL: Abdomen soft, non-tender, nondistended. Hepatic and splenic margins not palpable. MUSCULOSKELETAL: Extremities without clubbing, cyanosis, trace edema, right upper arm stabilized in a sling and swath NEUROLOGICAL: Awake but sleepy, answers questions appropriately. No obvious cranial nerve deficits. Motor grossly within normal limits. Normal speech. PSYCHIATRIC: Appropriate mood and affect; i Results - Labs CBC & Chem 7: 04/28/18 01:31 04/28/18 01:31 Labs: Laboratory Results - last 24 hr 04/28/18 04/28/18 04/28/18 01:31 01:31 01:31 WBC 5.3 RBC 2.85 L Hgb 9.2 L Hct 28.0 L MCV 98.3 MCH 32.3 MCHC 32.9 RDW 17.4 H Plt Count 104 L MPV 8.4 Neut % (Auto) 62.2 Lymph % (Auto) 17.3 [place] % (Auto) 16.3 H Eos % (Auto) 3.1 Baso % (Auto) 1.1 Neut # (Auto) 3.3 Lymph # (Auto) 0.9 L [place] # (Auto) 0.9 Eos # (Auto) 0.2 Baso # (Auto) 0.1 WBC Differential . Differential Comment Auto diff final PT INR APTT Sodium 140 Potassium 4.0 Chloride 102 Carbon Dioxide 25.2 Anion Gap 13 BUN 39 H Creatinine 2.93 H Estimated GFR 20 L Random Glucose 112 H Calcium 8.4 L Magnesium 2.7 H Total Bilirubin 1.1 H AST 33 ALT 17 Alkaline Phosphatase 93 Total Creatine Kinase 68 Troponin I 0.02 B-Natriuretic Peptide 1290 H Total Protein 6.7 Albumin 3.6 Lipase 151 Urine Color Urine Clarity Urine pH Ur Specific [place] Urine Protein Urine Glucose (UA) Urine Ketones Urine Occult Blood Urine Nitrate Urine Bilirubin Urine Urobilinogen Ur Leukocyte Esterase Urine RBC Urine WBC Hyaline Casts Urine Mucus Micro UA Comment Ur Microscopic Review Urine Culture Comments 04/28/18 04/28/18 01:31 04:10 WBC RBC Hgb Hct MCV MCH MCHC RDW Plt Count MPV Neut % (Auto) Lymph % (Auto) [place] % (Auto) Eos % (Auto) Baso % (Auto) Neut # (Auto) Lymph # (Auto) [place] # (Auto) Eos # (Auto) Baso # (Auto) WBC Differential Differential Comment PT 37.9 H D INR 3.8 APTT 38.7 H Sodium Potassium Chloride Carbon Dioxide Anion Gap BUN Creatinine Estimated GFR Random Glucose Calcium Magnesium Total Bilirubin AST ALT Alkaline Phosphatase Total Creatine Kinase Troponin I B-Natriuretic Peptide Total Protein Albumin Lipase Urine Color Yellow Urine Clarity Hazy H Urine pH 5.0 Ur Specific [place] 1.010 Urine Protein Negative Urine Glucose (UA) Negative Urine Ketones Negative Urine Occult Blood Negative Urine Nitrate Negative Urine Bilirubin Negative Urine Urobilinogen Less than 2 Ur Leukocyte Esterase Negative Urine RBC Less than 1 Urine WBC 1 Hyaline Casts 25 Urine Mucus Few H Micro UA Comment Culture not ind Ur Microscopic Review Not Reportable Urine Culture Comments Culture not ind - Imaging Impressions Abdomen/Pelvis CT 04/28/18 01:24 CONCLUSION: 1. No acute finding is identified within the abdomen or pelvis on this noncontrast examination. 2. There is a small volume of nonspecific free fluid in the perihepatic and perisplenic location. 3. Severe atherosclerotic disease. Cervical Spine CT 04/28/18 01:24 CONCLUSION: 1. No acute cervical spine abnormality is identified. There is anterolisthesis of C7 on T1 which may be related to the facet arthrosis. 2. Right pleural effusion. 3. 12 mm right thyroid nodule. Head CT 04/28/18 01:24 CONCLUSION: No acute abnormality is identified. . Chest X-Ray 10/08/18 01:26 CONCLUSION: 1. Small right pleural effusion with atelectasis at the right lung base. The pleural effusion has slightly increased from the prior examination. 2. Right proximal humerus fracture. Elbow X-Ray 04/28/18 01:28 CONCLUSION: No fracture is identified. Shoulder X-Ray 04/28/18 01:28 CONCLUSION: There is an oblique displaced fracture of the proximal right humerus through the surgical neck. Chest CT 04/28/18 03:04 CONCLUSION: 1. There is a mildly comminuted and displaced proximal right humerus fracture through the surgical neck region. 2. Suspected nondisplaced right lateral third rib fracture. No pneumothorax is present. 3. Moderate size simple appearing right pleural effusion and trace left pleural fluid. 4. Small volume of free fluid is present within the upper abdomen. 5. Enlarged right heart and dilated IVC suggesting elevated right heart pressures. There is severe coronary artery calcification. Assessment and Plan - Plan 87-year-old white male with a history of atrial fibrillation, hypertension who accidentally tripped and fell early this morning sustaining an injury over the right upper arm. 1. Status post mechanical fall with right proximal humerus fracture -per orthopedic surgery, Dr. Villasenor recommend nonsurgical intervention, nonweightbearing continue with pain medication and Occupational Therapy. 2. History of atrial fibrillationcurrently in normal sinus rhythmdue to INR being supratherapeutic, hold Coumadin at this time. Repeat INR in the morning. Resume metoprolol 3. Hypertension, essential chronicoverall controlled continue with home antihypertensives. 4. Anemia, likely chronicmonitor hemoglobin to rule out any acute bleed. 5.Acute exacerbation of chronic kidney disease stage III- IV -gentle hydration avoid nephrotoxins and monitor. 6. DVT prophylaxisINR supratherapeutic will hold Coumadin today. Thank you for this consultation.
[2018-04-28] MEDS ORDERED: Morphine Inj 4 MG/ML Vial IV.PUSH PRN (21:34)
[2018-04-29] MEDS ORDERED: Chlorhexidine Gluconate 2% 1 Pack (2 Cloths) TOPICAL PRN (04:00)
[2018-04-29] MEDS: Sod Chloride 0.9% Inj 1,000 ML IV.CONT SCH ×3 (04:11→22:00)
[2018-04-29] MEDS: Chlorhexidine Gluconate 2% 1 Pack (2 Cloths) TOPICAL SCH ×2 (04:20→19:24)
--- NOTE | 2018-04-29 06:32 | P.PNOP ---
Subjective Interval history: Arm is in sling and swath. Resting comfortably Physical Exam Vital signs: Vital Signs 04/28/18 08:00 04/28/18 09:00 04/28/18 12:00 Temperature 98.0 F 98.5 F Pulse Rate 79 79 72 Respiratory Rate 15 16 Blood Pressure 94/44 L 114/56 L Pulse Oximetry 92 L 96 04/28/18 16:00 04/28/18 20:00 04/29/18 00:00 Temperature 97.5 F L 97.9 F Pulse Rate 70 69 78 Respiratory Rate 16 18 Blood Pressure 104/58 L 107/62 Pulse Oximetry 95 96 04/29/18 04:00 Temperature 98.2 F Pulse Rate 103 H Respiratory Rate 18 Blood Pressure 110/62 Pulse Oximetry 95 Intake & Output 04/28/18 04/28/18 04/29/18 06:59 18:59 06:59 Intake Total 310 / 310 1000 / 1000 1000 / 1000 Balance 310 / 310 1000 / 1000 1000 / 1000 Weight 80.8 kg 80.8 kg Intake: IV 310 / 310 1000 / 1000 1000 / 1000 NS Inj 1,000 ML @ 100 mls/hr IV 210 / 210 1000 / 1000 1000 / 1000 .CONT .Q10H TONY Rx#:[id number] Ancef Inj 1,000 MG In NS Inj 100 / 100 100 ML @ 100 mls/hr IV.SIG ONCE ONE Rx#:[id number] Other: # Voids 3 Narrative: Right upper extremity: Pain to palpation of proximal humerus. Sling and swath in place. Intact distal pulses with full extension extension of all fingers Results - Labs CBC & Chem 7: 04/28/18 01:31 04/28/18 01:31 Assessment and Plan - Assessment and Plan Minimally displaced right proximal humerus fracture Nonoperative treatment with sling and swath at all times. Nonweightbearing with no range of motion of shoulder. Physical therapy to get out of bed weightbearing as tolerated bilateral lower extremities We will obtain repeat x-rays in 10-14 days to assess fracture alignment Case management for discharge planning to home with daughter or SNF
[2018-04-29 07:08] LABS: Baso # (Auto) 0.1 th/mm3 (0.0-0.2); Baso % (Auto) 1.1 % (0.0-2.0); Eos # (Auto) 0.1 th/mm3 (0.0-0.4); Eos % (Auto) 1.5 % (0.0-4.0); Hematocrit 24.9 % (39.0-51.0); Hemoglobin 8.2 gm/dL (13.0-17.0); Lymph # (Auto) 0.7 th/mm3 (1.0-4.8); Lymph % (Auto) 11.9 % (9.0-44.0); Mean Corpuscular HGB Conc 32.9 % (32.0-36.0); Mean Corpuscular Hemoglobin 32.5 pg (27.0-34.0); Mean Corpuscular Volume 98.8 fL (80.0-100.0); Neut % (Auto) 68.5 % (16.0-70.0); Platelet Count 92 th/mm3 (150-450); Red Blood Count 2.52 mil/mm3 (4.50-5.90); Red Cell Distribution Width 17.4 % (11.6-17.2); White Blood Count 5.8 th/mm3 (4.0-11.0)
[2018-04-29 07:13] LABS: INR 4.7 Ratio; Prothrombin Time 47.6 sec (9.8-11.6)
[2018-04-29 07:44] LABS: Albumin 3.3 g/dL (3.4-5.0); Anion Gap 13 meq/L (5-15); Aspartate Aminotransferase 35 U/L (15-37); Blood Urea Nitrogen 45 mg/dL (7-18); Calcium 8.8 mg/dL (8.5-10.1); Carbon Dioxide 23.3 meq/L (21.0-32.0); Chloride 105 meq/L (98-107); Glomerular Filtration Rate 19 mL/min (>89); Glucose,Random 113 mg/dL (74-106); Potassium 4.6 meq/L (3.5-5.1); Sodium 141 meq/L (136-145)
[2018-04-29 07:45] LABS: Alanine Aminotransferase 16 U/L (12-78)
[2018-04-29 07:47] LABS: Alkaline Phosphatase 73 U/L (45-117); Total Protein 6.4 g/dL (6.4-8.2)
--- NOTE | 2018-04-29 07:52 | XR ---
EXAM DATE: 04/29/2018 5:07 AM EDT AGE/SEX: 87 years / Male INDICATIONS: Follow up trauma, short of breath, right arm pain, evaluate hemothorax CLINICAL DATA: This is the patient's subsequent encounter. Patient reports that signs and symptoms h ave been present for 2 days and indicates a pain score of 7/10. MEDICAL/SURGICAL HISTORY: Cardiovascular disease. right humerus fracture CABG. Nephrostomy tu be, right. COMPARISON: C, CHEST 1V SINGLE AP, 04/28/2018. . FINDINGS: A single AP portable semierect view of the chest was obtained and again demonstrates the patient is s tatus post median sternotomy for bypass grafting procedure. The patient is mildly rotated to the righ t. The left subclavian A-V sequential transvenous pacer remains in place. The right costophrenic angl e remains blunted with abnormal patchy opacity at the right lung base. Left lung is clear. The heart size remains moderately prominent. Bony thorax is stable in appearance with fracture deformity of the right proximal humerus again noted. CONCLUSION: 1. No significant change. Small right pleural effusion with patchy airspace disease remaining at the right lung base. 2. Moderate cardiomegaly. 3. Proximal right humeral fracture again noted. Electronically signed by: Kranthi Knight MD 04/29/2018 7:51 AM EDT
[2018-04-29] MEDS: Famotidine 20 MG Tablet PO SCH (09:15)
[2018-04-29] MEDS: Docusate Sodium 100 MG Capsule PO SCH ×2 (09:15→21:13)
[2018-04-29] MEDS: Metoprolol Tartrate 25 MG Tablet PO SCH ×2 (09:16→21:13)
[2018-04-29] MEDS: Lidocaine 5% Patch T-DERMAL SCH (09:16)
[2018-04-29] MEDS: Torsemide 20 MG Tablet PO SCH (09:16)
[2018-04-29] MEDS: Ascorbic Acid 500 MG Tablet PO SCH (09:17)
--- NOTE | 2018-04-29 11:25 | P.PNIM ---
Subjective Interval history: Overall pain control. No other concerns at this time. Open to going to rehab. Physical Exam Vital signs: Vital Signs 04/28/18 12:00 04/28/18 16:00 04/28/18 20:00 Temperature 98.5 F 97.5 F L 97.8 F Pulse Rate 72 70 73 Respiratory Rate 16 16 18 Blood Pressure 114/56 L 104/58 L 125/58 L Pulse Oximetry 96 95 04/29/18 00:00 04/29/18 04:00 04/29/18 08:00 Temperature 97.9 F 98.2 F 98.1 F Pulse Rate 78 103 H 71 Respiratory Rate 18 18 16 Blood Pressure 107/62 110/62 108/53 L Pulse Oximetry 96 95 91 L Intake & Output 04/28/18 04/29/18 04/29/18 18:59 06:59 18:59 Intake Total 1000 / 1000 1000 / 1000 Balance 1000 / 1000 1000 / 1000 Weight 80.8 kg Intake: IV 1000 / 1000 1000 / 1000 NS Inj 1,000 ML @ 100 mls/hr IV 1000 / 1000 1000 / 1000 .CONT .Q10H TONY Rx#:[id number] Other: # Voids 3 Narrative: GENERAL: This is a well-nourished, well-developed patient, in no apparent distress. CARDIOVASCULAR: Regular rate and rhythm RESPIRATORY: Clear to auscultation. Breath sounds equal bilaterally. No wheezes , rales, or rhonchi. MUSCULOSKELETAL: Right upper extremity in a sling and swath, neurovascularly intact NEURO: Alert & Oriented x4 to person, place, time, situation. Moves all ext x4 Results - Labs CBC & Chem 7: 04/29/18 05:42 04/29/18 05:42 Laboratory Results - last 24 hr 04/29/18 04/29/18 04/29/18 05:42 05:42 05:42 WBC 5.8 RBC 2.52 L Hgb 8.2 L Hct 24.9 L MCV 98.8 MCH 32.5 MCHC 32.9 RDW 17.4 H Plt Count 92 L MPV 8.0 Prelim Diff (Auto) Slide review pending Neut % (Auto) 68.5 Lymph % (Auto) 11.9 [place] % (Auto) 17.0 H Eos % (Auto) 1.5 Baso % (Auto) 1.1 Neut # (Auto) 4.0 Lymph # (Auto) 0.[address] [place] # (Auto) 1.0 H Eos # (Auto) 0.1 Baso # (Auto) 0.1 WBC Differential . Diff Scan Auto diff confirmed Differential Comment . PT 47.6 H INR 4.7 Sodium 141 Potassium 4.6 Chloride 105 Carbon Dioxide 23.3 Anion Gap 13 BUN 45 H Creatinine 3.08 H Estimated GFR 19 L Random Glucose 113 H Calcium 8.8 Total Bilirubin 1.4 H AST 35 ALT 16 Alkaline Phosphatase 73 Total Protein 6.4 Albumin 3.3 L - Imaging Impressions Chest X-Ray 04/29/18 05:07 CONCLUSION: 1. No significant change. Small right pleural effusion with patchy airspace disease remaining at the right lung base. 2. Moderate cardiomegaly. 3. Proximal right humeral fracture again noted. Assessment and Plan - Plan 87-year-old white male with a history of atrial fibrillation, hypertension who accidentally tripped and fell early this morning sustaining an injury over the right upper arm. 1. Status post mechanical fall with right proximal humerus fracture -per orthopedic surgery, Dr. Villasenor recommend nonsurgical intervention, nonweightbearing continue with pain medication and Occupational Therapy. 2. History of atrial fibrillationcurrently in normal sinus rhythmdue to INR being supratherapeutic at 4.7 today, continue to hold Coumadin at this time. Repeat INR in the morning. Resume metoprolol 3. Hypertension, essential chronicoverall controlled continue with home antihypertensives. 4. Anemia, likely chronicmonitor hemoglobin to rule out any acute bleed. Mild drop in hemoglobin to 8.2 today will continue monitor. 5. Acute exacerbation of chronic kidney disease stage III- IV -gentle hydration avoid nephrotoxins and monitor. 6. DVT prophylaxisINR supratherapeutic will hold Coumadin today. Discharge Planning: For halfway facility placement.
--- NOTE | 2018-04-29 14:34 | P.PN ---
Subjective Interval history: Pain controlled OOB in chair Physical Exam Vital signs: Vital Signs 04/28/18 16:00 04/28/18 20:00 04/29/18 00:00 Temperature 97.5 F L 97.8 F 97.9 F Pulse Rate 70 73 78 Respiratory Rate 16 18 18 Blood Pressure 104/58 L 125/58 L 107/62 Pulse Oximetry 95 96 04/29/18 04:00 04/29/18 08:00 04/29/18 12:00 Temperature 98.2 F 98.1 F 97.8 F Pulse Rate 103 H 71 92 H Respiratory Rate 18 16 17 Blood Pressure 110/62 108/53 L 98/57 L Pulse Oximetry 95 91 L 95 Intake & Output 04/28/18 04/29/18 04/29/18 18:59 06:59 18:59 Intake Total 1000 / 1000 1000 / 1000 Balance 1000 / 1000 1000 / 1000 Weight 80.8 kg 80.8 kg Intake: IV 1000 / 1000 1000 / 1000 NS Inj 1,000 ML @ 100 mls/hr IV 1000 / 1000 1000 / 1000 .CONT .Q10H TONY Rx#:[id number] Other: # Voids 3 Weight On Admission 80.8 kg Narrative: GENERAL: 87-year-old well-nourished, well developed male OOB in chair. SKIN: Warm and dry. Left facial ecchymosis noted. HEAD: Normocephalic. EYES: Pupils equal and round. No scleral icterus. ENT: No nasal bleeding or discharge. Mucous membranes pink and moist. NECK: Trachea midline. No JVD. CARDIOVASCULAR: Regular rate and rhythm. RESPIRATORY: No accessory muscle use. Lungs clear to auscultation. Breath sounds equal bilaterally. GASTROINTESTINAL: Abdomen soft, non-tender, nondistended. + BS. MUSCULOSKELETAL: Extremities without cyanosis, or edema. RUE sling and swath in place. MAEW, + perfused NEUROLOGICAL: Awake and alert. Normal speech. Results - Labs CBC & Chem 7: 04/30/18 03:45 04/30/18 03:45 Laboratory Results - last 24 hr 04/29/18 04/29/18 04/29/18 05:42 05:42 05:42 WBC 5.8 RBC 2.52 L Hgb 8.2 L Hct 24.9 L MCV 98.8 MCH 32.5 MCHC 32.9 RDW 17.4 H Plt Count 92 L MPV 8.0 Prelim Diff (Auto) Slide review pending Neut % (Auto) 68.5 Lymph % (Auto) 11.9 [place] % (Auto) 17.0 H Eos % (Auto) 1.5 Baso % (Auto) 1.1 Neut # (Auto) 4.0 Lymph # (Auto) 0.7 L [place] # (Auto) 1.0 H Eos # (Auto) 0.1 Baso # (Auto) 0.1 WBC Differential . Diff Scan Auto diff confirmed Differential Comment . PT 47.6 H INR 4.7 Sodium 141 Potassium 4.6 Chloride 105 Carbon Dioxide 23.3 Anion Gap 13 BUN 45 H Creatinine 3.08 H Estimated GFR 19 L Random Glucose 113 H Calcium 8.8 Total Bilirubin 1.4 H AST 35 ALT 16 Alkaline Phosphatase 73 Total Protein 6.4 Albumin 3.3 L - Imaging Impressions Chest X-Ray 04/29/18 05:07 CONCLUSION: 1. No significant change. Small right pleural effusion with patchy airspace disease remaining at the right lung base. 2. Moderate cardiomegaly. 3. Proximal right humeral fracture again noted. Assessment and Plan - Plan [place]: Fell while bending over to put lotion on, striking his head, ?LOC. On Coumadin at home. INJURIES: RIGHT humerus fx (non-op) RIGHT rib fx (3) RIGHT pulmonary contusion PMHx: A-fib, colon cancer, HTN, prostate cancer, CABG, Pacemaker placement, GERD , CAD RIGHT humerus fx Orthopedics consulted Nonoperative management Pain control Bowel regimen NWB LUE OOB-PT and OT ordered Rehab placement RIGHT rib fx, RIGHT pulmonary contusion Supportive care Pulmonary toileting CXR shows small right effusion Pain control Bowel regimen OOB- PT and OT ordered CHF, RORO, HTN, supratherapeutic INR Hospitalist consulted for medical management Home meds resumed Monitor urine output A.m. labs Plan of care discussed with patient and RN at bedside. Collaborating Trauma surgeon agrees with plan. Case management consulted to assist with discharge planning. Plan to discharge to SNF in 1-2 days. Patient reports he prefers [facility] at discharge as his resides at that facility. - Attending Attestation The exam, history, and the medical decision-making described in the above note were completed with the assistance of the mid-level provider. I reviewed and agree with the findings presented. I attest that I had a [id number] encounter with the patient on the same day, and personally performed and documented my assessment and findings in the medical record. Trauma patient seen and examined, s/p Fall standing melvin Neuro exam stable, GCS 15, extremity fracture stable continue pain control, PT and discharge planning d/w patient at bedside, all questions answered, wants to DC home
[2018-04-30 05:12] LABS: Calcium 8.3 mg/dL (8.5-10.1); Carbon Dioxide 24.3 meq/L (21.0-32.0); Potassium 4.5 meq/L (3.5-5.1)
[2018-04-30 05:13] LABS: Hematocrit 25.7 % (39.0-51.0); Hemoglobin 8.6 gm/dL (13.0-17.0); Mean Corpuscular HGB Conc 33.7 % (32.0-36.0); Mean Corpuscular Hemoglobin 32.8 pg (27.0-34.0); Mean Corpuscular Volume 97.4 fL (80.0-100.0); Mean Platelet Volume 8.2 fL (7.0-11.0); Platelet Count 98 th/mm3 (150-450); Red Blood Count 2.64 mil/mm3 (4.50-5.90); Red Cell Distribution Width 17.6 % (11.6-17.2); White Blood Count 7.3 th/mm3 (4.0-11.0)
[2018-04-30 05:19] LABS: INR 4.1 Ratio; Prothrombin Time 40.8 sec (9.8-11.6)
[2018-04-30] MEDS: Metoprolol Tartrate 25 MG Tablet PO SCH ×2 (08:51→22:45)
[2018-04-30] MEDS: Ascorbic Acid 500 MG Tablet PO SCH (08:51)
[2018-04-30] MEDS: Famotidine 20 MG Tablet PO SCH (08:51)
[2018-04-30] MEDS: Lidocaine 5% Patch T-DERMAL SCH (08:52)
[2018-04-30] MEDS: Docusate Sodium 100 MG Capsule PO SCH ×2 (08:52→22:43)
[2018-04-30] MEDS: Sod Chloride 0.9% Inj 1,000 ML IV.CONT SCH (08:53)
[2018-04-30] MEDS: Torsemide 20 MG Tablet PO SCH (08:54)
--- NOTE | 2018-04-30 09:35 | P.PNIM ---
Subjective Interval history: Patient doing well. Reports pain overall controlled. Still needs significant help to get up from bed and work with physical therapy. Physical Exam Vital signs: Vital Signs 04/29/18 12:00 04/29/18 16:00 04/29/18 20:00 Temperature 97.8 F 97.3 F L 98.6 F Pulse Rate 92 H 80 69 Respiratory Rate 17 15 18 Blood Pressure 98/57 L 114/58 L 113/57 L Pulse Oximetry 95 98 97 04/30/18 00:00 04/30/18 04:00 Temperature 98 F 97.5 F L Pulse Rate 84 80 Respiratory Rate 18 18 Blood Pressure 107/60 112/65 Pulse Oximetry 95 98 Intake & Output 04/29/18 04/30/18 04/30/18 18:59 06:59 18:59 Intake Total 2099 / 2099 140 / 140 Balance 2099 / 2099 140 / 140 Weight 80.8 kg 82.2 kg Intake: IV 1000 / 1000 NS Inj 1,000 ML @ 100 mls/hr IV 1000 / 1000 .CONT .Q10H TONY Rx#:[id number] Oral 1100 / 1100 140 / 140 Other: # Voids 3 3 Date of Last Bowel Movement 04/29/18 04/30/18 # Bowel Movements 3 3 Weight On Admission 80.8 kg Narrative: GENERAL: This is a well-nourished, well-developed patient, in no apparent distress. CARDIOVASCULAR: Regular rate and rhythm RESPIRATORY: Clear to auscultation. Breath sounds equal bilaterally. No wheezes , rales, or rhonchi. GASTROINTESTINAL: Abdomen soft, non-tender, nondistended. Normal active bowel sounds MUSCULOSKELETAL: Right arm stabilized in the sling and swath. NEURO: Alert & Oriented to person place, right upper arm neurovascularly intact Results - Labs CBC & Chem 7: 04/30/18 03:45 04/30/18 03:45 Laboratory Results - last 24 hr 04/30/18 04/30/18 04/30/18 03:45 03:45 03:45 WBC 7.3 RBC 2.64 L Hgb 8.6 L Hct 25.7 L MCV 97.4 MCH 32.8 MCHC 33.7 RDW 17.6 H Plt Count 98 L MPV 8.2 PT 40.8 H INR 4.1 Sodium 139 Potassium 4.5 Chloride 102 Carbon Dioxide 24.3 Anion Gap 13 BUN 44 H Creatinine 3.02 H Estimated GFR 20 L Random Glucose 91 Calcium 8.3 L Assessment and Plan - Plan 87-year-old white male with a history of atrial fibrillation, hypertension who accidentally tripped and fell early this morning sustaining an injury over the right upper arm. 1. Status post mechanical fall with right proximal humerus fracture -per orthopedic surgery, Dr. Villasenor recommend nonsurgical intervention, nonweightbearing continue with pain medication and Occupational Therapy. 2. History of atrial fibrillationcurrently in normal sinus rhythmdue to INR being supratherapeutic at 4.1 today, continue to hold Coumadin at this time. Repeat INR in the morning. Resume metoprolol 3. Hypertension, essential chronicoverall controlled continue with home antihypertensives. Lopressor Demadex 4. Anemia, likely chronicmonitor hemoglobin to rule out any acute bleed. Mild drop in hemoglobin to 8.6 today will continue monitor. 5. Acute exacerbation of chronic kidney disease stage IV -status post gentle hydration avoid nephrotoxins and monitor. Continue with Demadex 6. DVT prophylaxisINR supratherapeutic will hold Coumadin today. Discharge Planning: For longterm facility placement.
--- NOTE | 2018-04-30 16:39 | P.PN ---
Subjective Interval history: Pain controlled OOB in chair Physical Exam Vital signs: Vital Signs 04/29/18 20:00 04/30/18 00:00 04/30/18 04:00 Temperature 98.6 F 98 F 97.5 F L Pulse Rate 69 84 80 Respiratory Rate 18 18 18 Blood Pressure 113/57 L 107/60 112/65 Pulse Oximetry 97 95 98 04/30/18 12:00 Temperature 97.8 F Pulse Rate 85 Respiratory Rate 16 Blood Pressure 131/61 Pulse Oximetry 100 Intake & Output 04/29/18 04/30/18 04/30/18 18:59 06:59 18:59 Intake Total 2099 / 2099 140 / 140 Balance 2100 / 2099 140 / 140 Weight 80.8 kg 82.2 kg Intake: IV 1000 / 1000 NS Inj 1,000 ML @ 100 mls/hr IV 1000 / 1000 .CONT .Q10H TONY Rx#:[id number] Oral 1100 / 1100 140 / 140 Other: # Voids 3 3 Date of Last Bowel Movement 04/29/18 04/30/18 04/30/18 # Bowel Movements 3 3 Weight On Admission 80.8 kg Narrative: GENERAL: 87-year-old well-nourished, well developed male OOB in chair. SKIN: Warm and dry. Left facial ecchymosis noted. NECK: Trachea midline. No JVD. CARDIOVASCULAR: Regular rate and rhythm. RESPIRATORY: No accessory muscle use. Lungs clear to auscultation. Breath sounds equal bilaterally. GASTROINTESTINAL: Abdomen soft, non-tender, nondistended. + BS. MUSCULOSKELETAL: Extremities without cyanosis, or edema. RUE sling and swath in place. MAEW, + perfused NEUROLOGICAL: Awake and alert. Normal speech. Results - Labs CBC & Chem 7: 05/01/18 06:18 04/30/18 03:45 Laboratory Results - last 24 hr 04/30/18 04/30/18 04/30/18 03:45 03:45 03:45 WBC 7.3 RBC 2.64 L Hgb 8.6 L Hct 25.7 L MCV 97.4 MCH 32.8 MCHC 33.7 RDW 17.6 H Plt Count 98 L MPV 8.2 PT 40.8 H INR 4.1 Sodium 139 Potassium 4.5 Chloride 102 Carbon Dioxide 24.3 Anion Gap 13 BUN 44 H Creatinine 3.02 H Estimated GFR 20 L Random Glucose 91 Calcium 8.3 L Assessment and Plan - Plan [place]: Fell while bending over to put lotion on, striking his head, ?LOC. On Coumadin at home. INJURIES: RIGHT humerus fx (non-op) RIGHT rib fx (3) RIGHT pulmonary contusion PMHx: A-fib, colon cancer, HTN, prostate cancer, CABG, Pacemaker placement, GERD , CAD RIGHT humerus fx Orthopedics consulted Nonoperative management Pain control Bowel regimen NWB LUE Maintain sling and swath OOB-PT and OT ordered Rehab placement RIGHT rib fx, RIGHT pulmonary contusion Supportive care Pulmonary toileting CXR shows small right effusion Pain control Bowel regimen OOB- PT and OT ordered CHF, RORO, HTN, supratherapeutic INR Hospitalist consulted for medical management Home meds resumed Monitor urine output Hold Coumadin, INR 4.1 A.m. labs Plan of care discussed with patient and RN at bedside. Collaborating Trauma surgeon agrees with plan. Case management consulted to assist with discharge planning. Plan to discharge to SNF on .
[2018-05-01 07:06] LABS: Hematocrit 23.2 % (39.0-51.0); Hemoglobin 7.8 gm/dL (13.0-17.0); Mean Corpuscular HGB Conc 33.5 % (32.0-36.0); Mean Corpuscular Hemoglobin 32.4 pg (27.0-34.0); Mean Platelet Volume 8.1 fL (7.0-11.0); Platelet Count 81 th/mm3 (150-450); Red Cell Distribution Width 17.2 % (11.6-17.2); White Blood Count 5.5 th/mm3 (4.0-11.0)
[2018-05-01 07:10] LABS: Prothrombin Time 30.4 sec (9.8-11.6)
[2018-05-01 08:22] VITALS: RESP 18
[2018-05-01] MEDS: Metoprolol Tartrate 25 MG Tablet PO SCH (08:23)
[2018-05-01] MEDS: Torsemide 20 MG Tablet PO SCH (08:23)
[2018-05-01] MEDS: Ascorbic Acid 500 MG Tablet PO SCH (08:23)
[2018-05-01] MEDS: Lidocaine 5% Patch T-DERMAL SCH (08:24)
[2018-05-01] MEDS: Docusate Sodium 100 MG Capsule PO SCH (08:24)
[2018-05-01] MEDS: Famotidine 20 MG Tablet PO SCH (08:24)
[2018-05-01] MEDS ORDERED: Sodium Chlor 0.9% Inj 250 ML IV.SIG SCH (11:00)
--- NOTE | 2018-05-01 11:07 | P.PN ---
Subjective Interval history: Trauma PTD: 3 Patient lying in bed. No distress noted. No complaints offered today. Physical Exam Vital signs: Vital Signs 04/30/18 12:00 04/30/18 20:00 05/01/18 00:00 Temperature 97.8 F 97.8 F 97.8 F Pulse Rate 85 76 77 Respiratory Rate 16 17 18 Blood Pressure 131/61 115/54 L 108/57 L Pulse Oximetry 100 97 97 05/01/18 00:30 05/01/18 04:00 05/01/18 07:00 Temperature 98.0 F Pulse Rate 72 Respiratory Rate 16 17 Blood Pressure 105/57 L Pulse Oximetry 96 92 L 05/01/18 08:00 Temperature 97.4 F L Pulse Rate 71 Respiratory Rate 18 Blood Pressure 124/60 Pulse Oximetry 99 Intake & Output 04/30/18 05/01/18 05/01/18 18:59 06:59 18:59 Intake Total 940 / 940 Balance 940 / 940 Intake: Oral 940 / 940 Other: # Voids 4 Date of Last Bowel Movement 04/30/18 04/30/18 04/30/18 # Bowel Movements 1 Narrative: GENERAL: This is a elderly 87-year-old male lying in bed. No distress noted. SKIN: Warm and dry. HEAD: Atraumatic. Normocephalic. EYES: PERRLA ENT: No nasal bleeding or discharge. Mucous membranes pink and moist. NECK: Trachea midline. No JVD. CARDIOVASCULAR: Regular rate and rhythm. RESPIRATORY: No accessory muscle use. Lungs are clear to auscultation. Breath sounds equal bilaterally. No distress or dyspnea. GASTROINTESTINAL: BS + x 4 quads. Abdomen soft, non-tender, nondistended. MUSCULOSKELETAL: Extremities without cyanosis, or edema. Right upper extremity sling in place. + peripheral pulses x 4 extremities. Warm with good capillary refill and sensation. MAEW. NEUROLOGICAL: Awake and alert. Normal speech and pattern. Results - Labs CBC & Chem 7: 05/01/18 06:18 04/30/18 03:45 Laboratory Results - last 24 hr 05/01/18 05/01/18 06:18 06:18 WBC 5.5 RBC 2.40 L Hgb 7.8 L Hct 23.2 L MCV 97.0 MCH 32.4 MCHC 33.5 RDW 17.2 Plt Count 81 L MPV 8.1 PT 30.4 H D INR 3.0 Assessment and Plan - Assessment (1) Fall Code(s): W19.XXXA - Unspecified fall, initial encounter Status: Acute (2) Right rib fracture Code(s): S22.31XA - Fracture of one rib, right side, initial encounter for closed fracture Status: Acute (3) Fracture of proximal end of humerus Code(s): S42.209A - Unspecified fracture of upper end of unspecified humerus, initial encounter for closed fracture Status: Acute - Plan [place]: This is a elderly 87-year-old male who sustained a fall. He fell while bending over trying to put lotion on. He struck his head. Questionable LOC. Patient is on Coumadin at home. INJURIES: RIGHT humerus fx (non-op) RIGHT rib fx (3) RIGHT pulmonary contusion Mod RIGHT ALEJANDRO vs effusion Small amount of free fluid around the liver and spleen PMHx: A-fib. Colon cancer, HN. Prostate cancer. CABG. Pacemaker placement. GERD. CAD Procedures: Consults: Orthopedics. Hospitalist. Case management. Diet: Regular diet. Tolerating po diet. Encourage good po intake with each meal. Pulmonary: Encourage good pulmonary toileting. IS at bedside and pt encouraged to use. Rationale for use explained to patient, and verbalized understanding. PAIN Management: Oxycodone 5mg q4h. Morphine 2 mg q 3h for breakthrough pain. IV Ofirmev. Lidoderm patch Activity: OOB. PT and OT ordered (NWB RUE GI prophylaxis: Pepcid 20 mg BID po Bowel regimen: Colace. MOM. LBM: 04/30 DVT prophylaxis: Mechanical VTE with SCDs. Chemical management TBD. DC Planning: Case management consulted for assistance with final discharge disposition. [facility], after 1 unit PRBC given. 3008 is on the chart. Emotional support provided to patient and family at bedside and plan of care discussed. Discussed with RN at bedside. Discussed pt condition and plan of care with collaborating trauma surgeon. Patient is hemodynamically stable and being managed on the med/surg floor. The trauma team will round each day, and evaluate plan of care on a daily basis. RIGHT humerus fx (non-op) Orthopedics consulted and assisting in management and care Nonoperative management at this time Supportive care Pain management PT and OT ordered NWB RUE -sling for comfort and support Bowel regimen RIGHT rib fx (3) RIGHT pulmonary contusion Mod RIGHT ALEJANDRO vs effusion Supportive care O2 nasal cannula as needed Chest x-ray as needed Aggressive pulmonary toileting Pain management PT and OT ordered Encourage out of bed Bowel regimen A. fib HTN CAD History of CABG History of pacemaker Vital signs every 4 hours and as needed Continue home meds Lopressor 25 mg daily Torsemide 20 mg daily Hold Coumadin -may resume in 2 weeks (1) Fall Qualifiers: Encounter type: initial encounter Qualified Code(s): W19.XXXA - Unspecified fall, initial encounter (2) Right rib fracture Qualifiers: Encounter type: initial encounter Rib fracture type: single rib Fracture type: closed Qualified Code(s): S22.31XA - Fracture of one rib, right side, initial encounter for closed fracture (3) Fracture of proximal end of humerus Qualifiers: Encounter type: initial encounter Fracture type: closed Fracture morphology : unspecified fracture morphology Laterality: right Qualified Code(s): S42.201A - Unspecified fracture of upper end of right humerus, initial encounter for closed fracture
--- NOTE | 2018-05-01 12:44 | P.PN ---
Subjective Interval history: Patient doing well. Reports that he is tolerating p.o., voiding/stooling well. Patient reports pain well controlled with p.o. meds. Patient reports that he will be going to put on today for rehab. Patient desires to go here because since also his is. Physical Exam Vital signs: Vital Signs 04/30/18 20:00 05/01/18 00:00 05/01/18 00:30 Temperature 97.8 F 97.8 F Pulse Rate 76 77 Respiratory Rate 17 18 16 Blood Pressure 115/54 L 108/57 L Pulse Oximetry 97 97 05/01/18 04:00 05/01/18 07:00 05/01/18 08:00 Temperature 98.0 F 97.4 F L Pulse Rate 72 71 Respiratory Rate 17 18 Blood Pressure 105/57 L 124/60 Pulse Oximetry 96 92 L 99 05/01/18 12:00 Temperature 97.6 F Pulse Rate 88 Respiratory Rate 18 Blood Pressure 103/60 Pulse Oximetry 97 Intake & Output 04/30/18 05/01/18 05/01/18 18:59 06:59 18:59 Intake Total 940 / 940 Balance 940 / 940 Intake: Oral 940 / 940 Other: # Voids 4 Date of Last Bowel Movement 04/30/18 04/30/18 04/30/18 # Bowel Movements 1 Narrative: GENERAL: Thin male, in no acute distress, sitting comfortably in chair SKIN: Warm and dry. Multiple small bruises of left cheek as well as bilateral upper extremities and bilateral lower extremities per patient these are chronic. HEENT: Normocephalic. No scleral icterus. No injection or drainage. PERRLA, MOM. NECK: Supple, trachea midline. No JVD or lymphadenopathy. CARDIOVASCULAR: Regular rate and rhythm without murmurs, gallops, or rubs. RESPIRATORY: Breath sounds equal bilaterally. No accessory muscle use. GASTROINTESTINAL: Abdomen soft, non-tender, nondistended. MUSCULOSKELETAL: No cyanosis, or edema. Right arm in sling. BACK: Nontender without obvious deformity. No CVA tenderness. NEURO: AAO x3, no focal deficit Results - Labs CBC & Chem 7: 05/01/18 06:18 04/30/18 03:45 Laboratory Results - last 24 hr 05/01/18 05/01/18 05/01/18 06:18 06:18 11:56 WBC 5.5 RBC 2.40 L Hgb 7.8 L Hct 23.2 L MCV 97.0 MCH 32.4 MCHC 33.5 RDW 17.2 Plt Count 81 L MPV 8.1 PT 30.4 H D INR 3.0 Blood Type O Negative MTS Gel Crossmatch See Detail Assessment and Plan - Assessment (1) Fall Code(s): W19.XXXA - Unspecified fall, initial encounter Status: Acute (2) Right rib fracture Code(s): S22.31XA - Fracture of one rib, right side, initial encounter for closed fracture Status: Acute (3) Elevated INR Code(s): R79.1 - Abnormal coagulation profile Status: Acute (4) Fracture of proximal end of humerus Code(s): S42.209A - Unspecified fracture of upper end of unspecified humerus, initial encounter for closed fracture Status: Acute - Plan This is an 87-year-old CM with a PMHx of Atrial Fibrillation and HTN who accidentally tripped and fell sustaining an injury over the right upper arm. Per imaging found to have a R Proximal Humerus fx managed non-surgically, HD#4 1. Status post mechanical fall with right proximal humerus fracture Managed by Ortho Dr. Villasenor recommended nonsurgical intervention, nonweightbearing Continue with pain medication and Occupational Therapy. 2. History of Atrial Fibrillation Currently in normal sinus rhythm Due to INR being supratherapeutic at 3.8 on admission Coumadin held Continue to hold Coumadin at this time INR 3, goal 2-3 F/U INR in the morning Cont. Metoprolol 3. Hypertension Stable Cont. home Torsemide and Metoprolol 4. Anemia, Chronic Hgb 7.8 from 8.6, will get 1U pRBC's today per Surgery reccs 5. Acute on Chronic CKD, per daughter this is his baseline Sees Nephrology as outpatient s/p gentle hydration Avoid nephrotoxins Creatinine 3.02 on 04/30 from 3.08, per review of our EMR 1.92 in 2014 Cont. to monitor PRN 6. DVT prophylaxis INR at goal of 2-3, will hold Coumadin today and plan to resume tomorrow 7. Dispo: Per surgery team, patient will receive 1 unit PRBCs today then will be transferred to [facility] for rehab, they have placed orders. Upon my evaluation of patient, D/C orders were placed by Surgery team. Discussed Condition With: patient, RN, daughter (1) Fall Qualifiers: Encounter type: initial encounter Qualified Code(s): W19.XXXA - Unspecified fall, initial encounter (2) Right rib fracture Qualifiers: Encounter type: initial encounter Rib fracture type: single rib Fracture type: closed Qualified Code(s): S22.31XA - Fracture of one rib, right side, initial encounter for closed fracture (4) Fracture of proximal end of humerus Qualifiers: Encounter type: initial encounter Fracture type: closed Fracture morphology : unspecified fracture morphology Laterality: right Qualified Code(s): S42.201A - Unspecified fracture of upper end of right humerus, initial encounter for closed fracture
[2018-05-01 13:58] VITALS: O2SAT 98
[2018-05-01 14:16] VITALS: BP 107/57; PULSE 73; TEMP 97.8
--- NOTE | 2018-05-02 13:54 | P.DS ---
Date of admission: 04/28/18 05:05 Primary care physician: Braden Johnson MD Attending physician on discharge: Singh Wu Anticipated date of discharge: 05/02/18 Brief History from admission: Mechanical fall DS: Diagnosis - Discharge Diagnosis (1) Fall Status: Acute (2) Right rib fracture Status: Acute (3) Fracture of proximal end of humerus Status: Acute DS: Summary Hospital Course: [place]: This is a elderly 87-year-old male who sustained a fall. He fell while bending over trying to put lotion on. He struck his head. Questionable LOC. Patient is on Coumadin at home. INJURIES: RIGHT humerus fx (non-op) RIGHT rib fx (3) RIGHT pulmonary contusion Mod RIGHT ALEJANDRO vs effusion Small amount of free fluid around the liver and spleen PMHx: A-fib. Colon cancer, HN. Prostate cancer. CABG. Pacemaker placement. GERD. CAD Procedures: Consults: Orthopedics. Hospitalist. Case management. Patient receiving PRBC times 1 unit now, and once blood infused, patient may DC to rehab. The patient is now tolerating a po diet. Eating and drinking well. Pain is being managed well with PO pain medications, all hospital medications will [facility] at [facility]. (NO driving while taking narcotic pain medication enforced to patient.) Pt is having regular bowel movements, and have recommended to patient to continue with stool softeners while taking narcotic pain medications to prevent constipation. Pt has been participating in PT and OT while admitted at [place] and has been ambulating with their assistance and independently. PT and OT will [facility] at [facility]. All follow up appointments have been provided and discussed with the patient. It is recommended that the patient keeps all his follow up appointments for continued recovery. Patient's condition and plan of care discussed with collaborating trauma surgeon. He is agreeable to plan for discharge today. Therefore, the patient is stable to be safely discharged to [facility] from a trauma surgery standpoint. Thank you for allowing us to participate in his care. We wish Enzo the best in his recovery. RIGHT humerus fx (non-op) Orthopedics consulted and assisting in management and care Nonoperative management at this time Supportive care Pain management PT and OT ordered NWB RUE -sling for comfort and support Bowel regimen RIGHT rib fx (3) RIGHT pulmonary contusion Mod RIGHT ALEJANDRO vs effusion Supportive care O2 nasal cannula as needed Chest x-ray as needed Aggressive pulmonary toileting Pain management PT and OT ordered Encourage out of bed Bowel regimen A. fib HTN CAD History of CABG History of pacemaker Vital signs every 4 hours and as needed Continue home meds Lopressor 25 mg daily Torsemide 20 mg daily Hold Coumadin -may resume in 2 weeks - Time Spent with Patient Total time spent providing and/or coordinating discharge services: Greater than 30 minutes - Quality: VTE Deep Vein Thrombosis/Pulmonary Embolism Present on Admission: No Exam Vital signs: Vital Signs 05/01/18 13:56 05/01/18 14:12 Temperature 97.2 F L 97.8 F Pulse Rate 86 73 Respiratory Rate 18 18 Blood Pressure 112/87 107/57 L Pulse Oximetry 98 Intake & Output 05/01/18 05/02/18 05/02/18 18:59 06:59 18:59 Intake Total 0 / 0 Balance 0 / 0 Intake: Intake (Blood Product) Amt 0 / 0 Rbc As-3 Leukoreduced Unit 0 / 0 [id number] Other: Date of Last Bowel Movement 04/30/18 Results Procedures completed during hospitalization: . Labs on day of discharge: Labs from last 24 hours 05/01/18 11:56 Blood Type O Negative Antibody Screen Negative MTS Gel Crossmatch See Detail - Impressions ITS Impressions Abdomen/Pelvis CT 04/28/18 01:24 CONCLUSION: 1. No acute finding is identified within the abdomen or pelvis on this noncontrast examination. 2. There is a small volume of nonspecific free fluid in the perihepatic and perisplenic location. 3. Severe atherosclerotic disease. Cervical Spine CT 04/28/18 01:24 CONCLUSION: 1. No acute cervical spine abnormality is identified. There is anterolisthesis of C7 on T1 which may be related to the facet arthrosis. 2. Right pleural effusion. 3. 12 mm right thyroid nodule. Head CT 04/28/18 01:24 CONCLUSION: No acute abnormality is identified. . Elbow X-Ray 04/28/18 01:28 CONCLUSION: No fracture is identified. Shoulder X-Ray 04/28/18 01:28 CONCLUSION: There is an oblique displaced fracture of the proximal right humerus through the surgical neck. Chest CT 04/28/18 03:04 CONCLUSION: 1. There is a mildly comminuted and displaced proximal right humerus fracture through the surgical neck region. 2. Suspected nondisplaced right lateral third rib fracture. No pneumothorax is present. 3. Moderate size simple appearing right pleural effusion and trace left pleural fluid. 4. Small volume of free fluid is present within the upper abdomen. 5. Enlarged right heart and dilated IVC suggesting elevated right heart pressures. There is severe coronary artery calcification. Chest X-Ray 04/29/18 05:07 CONCLUSION: 1. No significant change. Small right pleural effusion with patchy airspace disease remaining at the right lung base. 2. Moderate cardiomegaly. 3. Proximal right humeral fracture again noted. Discharge Plan - Discharge Disposition Patient Disposition: 03 Discharge to SNF - Discharge Condition Condition: Stable - Discharge Order Discharge Orders: Discharge Order (Routine); Ordered 05/01/18 Ordered By: Thania Caruso - Discharge Details Anticipated Discharge Date: 05/01/18 Discharge Comment: PT MAY RESUME COUMADIN IN 2 WEEKS - Physicians Team Primary Care Provider: Braden Johnson Attending Provider: Dario Zamora Other Providers: Thomas Ly MD ; Odalis Rosenberg MD ; Thania Caruso ARNP ; Donald Bob MD ; Singh Wu MD ; Stevie Jones ARNP ; Dario Zamora MD ; Hay Philip MD ; Lei Antony MD ; [facility] ; Danny Escudero MD ; [facility] ; Pat Russell MD
== END 2018-05-01 18:54 ==
LOC: NEPE 00:45 → NEDA 00:45 → N06 06:05
PROVIDERS: ADMIT Surgery; ATTEND Surgery